=== PATIENT | female | born 1930 | race Caucasian/White ===

== ENCOUNTER 2018-10-28 15:36 | Inpatient (IN) ==
--- OUTSIDE RECORDS SUMMARY | 2018-10-28 15:45 | External Medical Summary | Continuity of Care Document ---
:1930 Author Name Lilia Pastor Address Unavailable Unavailable , Care Team Providers Name Role Phone Mae Pastor, Les Unavailable [email or web address] [email or web address], UNKNOWN Unavailable Unavailable Problems Active medical history not documented Allergies and Adverse Reactions Allergy history not documented Medications Medications not documented Procedures Procedures not documented Immunizations Immunizations not documented Plan of Treatment Planned Observations Planned Goals not documented Results No Known Results Results not documented Encounters Appointment; Kayden Wall M.D. 01-Jan-2009 10:00 Encounter Diagnosis: Problem not documented
[2018-10-28 16:38] LABS: Basophils # (auto) 0.03 K/uL (0-0.2); Basophils % (auto) 0.4 %; Eosinophils # (auto) 0.34 K/uL (0-0.5); Eosinophils % (auto) 4.1 %; Hematocrit (blood only) 42.6 % (37-47); Hemoglobin 15.5 g/dL (12.0-16.0); Immature Granulocytes # (auto) 0.03 K/uL (0.00-0.02); Immature Granulocytes % (auto) 0.4 %; Lymphocytes # (auto) 2.77 K/uL (1.2-3.4); Lymphocytes % (auto) 33.5 %; Mean Corpuscular Hgb Conc 36.4 g/dL (32-36); Mean Corpuscular Volume 90.6 fL (80-100); Mean Platelet Volume 9.4 fL (7.4-10.4); Monocytes # (auto) 1.02 K/uL (0.11-0.59); Monocytes % (auto) 12.3 %; Neutrophils # (auto) 4.07 K/uL (1.4-6.5); Neutrophils % (auto) 49.3 %; Platelet Count 205 K/uL (130-400); RDW Coefficient of Variation 12.1 % (11.5-14.5); RDW Standard Deviation 40.3 fL (36.4-46.3); White Blood Count 8.26 K/uL (4.8-10.8)
--- NOTE | 2018-10-28 16:46 | XRay Report ---
XR chest 2V routine CLINICAL HISTORY: Chest Pain dyspnea COMPARISON STUDY: 04/02/2018 FINDINGS: Mild cardiomegaly. Minimal interstitial prominence considered chronic. Mild emphysematous c hange. No focal infiltrate. IMPRESSION: Chronic and mild emphysematous change. No acute process. The above report was generated using voice recognition software. It may contain grammatical, syntax or spelling errors. Electronically signed by: Eleuterio Pal M.D. 10/28/2018 4:45 PM
[2018-10-28 16:52] LABS: Partial Thromboplastin Ratio 0.9; Partial Thromboplastin Time 24.8 Seconds (21.0-31.0); Prothrombin Time 10.5 Seconds (9.0-12.0)
[2018-10-28 16:57] LABS: Alanine Aminotransferase 20 U/L (12-78); Albumin Level 3.6 gm/dl (3.4-5.0); BUN Creatinine Ratio 21.6 (10-20); Blood Urea Nitrogen 17 mg/dl (7-18); Calcium 9.1 mg/dl (8.5-10.1); Carbon Dioxide 25 mmol/L (21-32); Chloride 103 mmol/L (98-107); Creatinine Clr Calc Pharmacy 50.1 ml/min; Est GFR (African American) 75.7; Est GFR (Non-African American) 65.3; Glucose 99 mg/dl (70-99); Lipase 106 U/L (73-393)
[2018-10-28 17:01] LABS: Alkaline Phosphatase 70 U/L (45-117); Bilirubin,Total 0.4 mg/dl (0.2-1); Troponin I 0.024 ng/ml (0-0.045)
[2018-10-28 17:05] LABS: Potassium 3.9 mmol/L (3.5-5.1); Sodium 139 mmol/L (136-145)
[2018-10-28] MEDS ORDERED: ALBUT/IPRATROP 3MG/0.5MG NEB 3 ML VIAL NEB STA (17:07)
[2018-10-28 17:11] LABS: Aspartate Aminotransferase 14 U/L (15-37); Bilirubin Direct < 0.1 mg/dl (0-0.2); Magnesium 2.3 mg/dl (1.8-2.4)
[2018-10-28] MEDS ORDERED: HEPARIN SODIUM/DEXTROSE 25,000 UNITS/500 ML BAG IV SCH (17:30)
[2018-10-28] MEDS ORDERED: HEPARIN SOD (PORCINE) 1000 UNIT/ML 10 ML VIAL ONE (18:00)
--- NOTE | 2018-10-28 18:41 | History & Physical Report ---
Date of Service October 28, 2018 Assessment & Plan (1) Atrial flutter: This is an 88-year-old female who has a significant PMH of HTN, prediabetes, glaucoma, vitamin D deficiency, emphysema, history of cervical spine fusion x2 who presents to [facility] ED at the referral of her PCP. Patient was seen in outpatient setting by PCP. Complain of bilateral lower extremity weakness, shortness of breath, lightheadedness, heart racing, left- sided chest heaviness. An EKG was performed which revealed patient was in atrial flutter with AV block, questionable anterolateral infarct which was changed from week prior. She received ASA 81 mg x 4, placed on oxygen via NC and was sent to ED. In ED pt in rate controlled atrial flutter. CBC and CMP relatively unremarkable. Troponin detectable but WNL. CXR no acute abnormality with Chronic and mild emphysematous change Started on IV heparin per cardiology admit to telemetry cardiology consulted, appreciate their input etiology of aflutter unknown - recent tx for lower resp tract infection as outpt with prednisone 40mg x 5 day, doxycyline (still 3 days to complete course) and ventolin ? if underlying ischemic heart disease, check tsh Continue IV Heparin trend troponin x 2 repeat ecg in a.m. obtain resting echocardiogram (last echo 06/2017 mild concentric left ventricular hypertrophy, EF 50 to 54%, grade 1 diastolic dysfunction, mild aortic valve sclerosis, moderate 3+ mitral regurgitation, trace aortic insufficiency) NPO after midnight PRN Lopressor for HR > 120 obtain TSH replete K for > 4.0, mag > 2.0 (2) HTN (hypertension): blood pressure elevated in ED continue coreg monitor and treat accordingly (3) Hyperlipidemia: diet controlled last lipid panel 01/24 total chol 208, LDL 117 previously has been on numerous statins in past, intolerant per prior cardiology notes obtain fasting lipid panel in a.m. (4) Pre-diabetes: Last A1C 6.4 04/27 obtain A1C in a.m. monitor fasting glucose (5) Emphysema of lung: no acute exacerbation complete doxycycline course (additional 3 days) xopenex prn for sob/wheezing (6) Glaucoma: Continue eyedrops (7) Constipation: report per pt requesting stool softener/lax Senna S ordered, monitor abd soft, NT (8) DVT prophylaxis: IV heparin SCD/TEDS Disposition: to be determined Follow up: PCP Dr. Rojelio Richmond upon discharge Patient was seen and examined in collaboration with Dr. Street, please see addendum History of Present Illness Chief Complaint: Referred to ED by PCP Primary Care Provider: Gabriela Richmond MD This is an 88-year-old female who has a significant PMH of HTN, prediabetes, g laucoma, vitamin D deficiency, emphysema, history of cervical spine fusion x2 who presents to [facility] ED at the referral of her PCP. Patient was seen in outpatient setting by Dr.Frank Richmond for follow-up from a week prior. She continued to complain of bilateral lower extremity weakness, shortness of breath, lightheadedness, heart racing, left-sided chest heaviness. An EKG was performed which revealed patient was in atrial flutter with AV block, questionable anterolateral infarct which was changed from week prior. She received ASA 81 mg x 4, placed on oxygen via NC and was sent to ED. Also of note patient seen by PCP on 10/20 secondary to shortness of breath, cough. Was placed on doxycycline, prednisone, inhaler. Lab work was performed which revealed elevated proBNP and because of this was placed on Lasix 20 mg for 3 days. Upon my evaluation patient elicits for approximately 1 month she has been having shortness of breath with exertion, heart racing, left-sided chest pressure that is nonradiating, feeling weak at the knees. Symptoms would come and go, but over the past week has been coming more constant. She has not fallen or lost consciousness. Significant decrease in exercise tolerance, little activity makes patient very fatigue, weak and sob. "I walked into [employer] [facility] to get [facility] today and just the walk in there had me weak at the knees." Had episode of BPPV at end of September but this has since resolved. Her cough is much improved. She denies any fever, chills, sweats, shortness of breath, orthopnea, PND, edema, wheezing, abdominal pain, dysuria, hematuria, increased urgency or frequency with urination. Her appetite has been good. She did have nausea and episode of emesis x2 yesterday secondary to taking medication on empty stomach. Allergies Allergy/AdvReac Type Severity Reaction Status Date / Time codeine Allergy Intermediate GI SYMPTOMS Unverified 08/22/19 16:19 Iodinated Contrast- Oral and Allergy Intermediate GI SYMPTOMS Unverified 10/28/18 16:19 IV Dye acetaminophen Allergy Mild AGITATION Unverified 10/28/18 16:19 Home Medications Home Medications Medication Instructions Recorded Confirmed Type Saccharomyces boulardii 250 mg PO BID 10/28/18 10/28/18 History albuterol sulfate [Ventolin HFA] 2 puff INHALATION Q6H PRN 10/28/18 10/28/18 History aspirin [Aspir-81] 81 mg PO DAILY 10/28/18 10/28/18 History carvedilol 6.25 mg PO BID 10/28/18 10/28/18 History cholecalciferol (vitamin D3) 2,000 unit PO QAM 10/28/18 10/28/18 History [Vitamin D3] doxycycline hyclate 100 mg PO BID 10/28/18 10/28/18 History ipratropium-albuterol [Combivent 1 puff INHALATION QID 10/28/18 10/28/18 History Respimat] prednisolone acetate 1 drp OPL HS 10/28/18 10/28/18 History prednisolone acetate 1 drp OPR QID 10/28/18 10/28/18 History ranitidine HCl 150 mg PO BID 10/28/18 10/28/18 History Past Med/Surg History Medical History Hyperlipidemia Pre-diabetes (Chronic) Emphysema of lung (Chronic) Glaucoma (Chronic) HTN (hypertension) (Chronic) Lumbar degenerative disc disease (Chronic) HTN (hypertension) Heart murmur Surgical History History of keratoplasty (Chronic) History of hysterectomy (Resolved) History of partial colectomy (Resolved) "diverticulitis" History of section (Resolved) "x4" History of cholecystectomy (Resolved) 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" H/O neck surgery (Resolved) "cervical laminectomy Dr Suleiman Bean 2010" and revision in 2018 Family History Mother Diabetes Stroke Sister Diabetes Other Family history non-contributory Social History Preferred Language: Welsh Communication Ability: Effective Bander Required: No Beliefs That Will Affect Care: Confucianism marital status: Current Living Situation: Alone current occupational status: retired Other Information That Helps Us Care for You: No Feels Safe at Home: Yes Safety Concerns: Feels Safe At This Time Smoking Status: Never smoker Do You Dip or Chew Tobacco: No ; Second Hand Exposure: No ; Hx Alcohol Use: No Hx Substance Use: No Review of Systems Review of Systems: All systems reviewed & are unremarkable except as noted in HPI & below Physical Exam Physical Exam: Constitutional: WD/WN, vitals as above, elderly, F, NAD, sitting up in bed, pleasant, conversing easily Head: Normocephalic, Atraumatic Eyes: L lower eyelid inverted, conjunctivae normal, anicteric sclerae ENMT: external ear and nose normal, oropharynx normal Neck: trachea midline, no thyromegaly normal visual inspection Respiratory: normal respiratory effort, lungs clear to auscultation, no wheeze, rales, rhonchi. Normal insp/exp effort, no accessory muscle use Cardiovascular: IRR/IRR, II/ KOKI best at apex, no edema Vessels: no JVD or carotid bruit Chest: normal inspection of chest Abdomen: normal bowel sounds, soft, nontender, no hepatosplenomegaly Musculoskeletal: no cyanosis or clubbing, extremities motor strength 5/5 Skin: no rashes, warm and dry normal turgor Neurologic: no face palsy, no dysarthria CN's II-XI intact bilaterally and moves all extremities Psychiatric: A+Ox3, euthymic affect Lymphatic: no cervical or axillary lymphadenopathy : deferred Results & Data Vital Signs (Past 12 Hours) Vital Signs Temp Pulse Pulse Resp BP Pulse Ox 10/28/18 17:34 74 18 96 10/28/18 15:50 93 10/28/18 15:38 36.6 C 94 H 26 H 161/93 H 93 Laboratory Results Short CBC 10/28/18 Range/Units 15:12 WBC 8.26 (4.8-10.8) K/uL Hgb 15.5 (12.0-16.0) g/dL Hct 42.6 (37-47) % Plt Count 205 (130-400) K/uL BMP 10/28/18 15:12 Sodium 139 Potassium 3.9 Chloride 103 Carbon Dioxide 25 BUN 17 Creatinine 0.81 Glucose 99 Calcium 9.1 Cardiac Enzymes 10/28/18 Range/Units 15:12 Troponin I 0.024 (0-0.045) ng/ml Liver Function 10/28/18 Range/Units 15:12 Total Bilirubin 0.4 (0.2-1) mg/dl Direct Bilirubin < 0.1 (0-0.2) mg/dl AST 14 L (15-37) U/L ALT 20 (12-78) U/L Alkaline Phosphatase 70 (45-117) U/L Albumin 3.6 (3.4-5.0) gm/dl Diagnostic Findings CXR: IMPRESSION: Chronic and mild emphysematous change. No acute process. Medications Administered Heparin Sodium/Dextrose (Heparin Sodium/Dextrose) 25,000 units in 500 mls @ 0.02 mls/hr IV .Q24H DAVID; Protocol Stop: 11/27/18 17:29 Last Admin: 10/28/18 18:06 Dose: 1,150 units/hr, 23 mls/hr Documented by: [id number] Cosigned by: [id number] Discontinued Medications Albuterol (Duoneb) 3 ml NEB NOW STA Stop: 10/28/18 17:08 Last Admin: 10/28/18 17:33 Dose: 3 ml Documented by: [id number] Heparin Sodium/Dextrose () 1 ea IV NOW STA; Protocol Stop: 10/28/18 17:20 Last Admin: 10/28/18 18:13 Dose: Not Given Documented by: [id number] ECG Rate (beats per minute): 74 Rhythm: atrial flutter Findings: + ST depression Additional Comments: aflutter with variable AV Block with PVC, inferior infarct, age-indeterminate, anterior infarct (cited on or before April 02, 2018) ST now depressed inferiorly Code Status & VTE Plan VTE Prophylaxis Plan VTE Prophylaxis will be ordered: Yes Supervising Physician Co-Signing Physician Notes Patient is an 88-year-old female with multiple problems presents with history of bilateral lower extremity weakness, shortness of breath, dizziness, palpitations and left-sided chest heaviness. Patient was noted to have atrial flutter with AV block on EKG which is rate controlled and questionable anterolateral ST changes. Patient was recently started on doxycycline and prednisone course for possible upper respiratory infection by her PCP. She was also placed on Lasix for an elevated BNP noted on outpatient work-up. Please review HPI for complete details of presentation. On exam patient is moderately built and nourished, no apparent distress, normocephalic atraumatic, anisocoria, lungs are clear to auscultation, irregularly irregular rhythm,+ systolic murmur, no pedal edema, grossly no focal neurological deficits. Patient is admitted for management of atrial flutter and EKG changes. R/O ACS. Initial troponin negative. Patient is started on IV heparin. Cardiology is consulted. We will continue home carvedilol. We will give Lopressor PRN. Will obtain echo. Trend troponins. C heck TSH. Monitor electrolytes. Further management based on audiology input. We will continue prednisone, doxycycline course. I personally reviewed the record. Patient is interviewed and examined at bedside. Patient's care is coordinated with Tracie Vu PA-C. Please refer to the documentation above for details of patient's presentation and for discussion of other issues. (1) Atrial flutter Atrial flutter type: unspecified Qualified Code(s): I48.92 - Unspecified atrial flutter
[2018-10-28] MEDS ORDERED: METOPROLOL TARTRATE 1 MG/ML VIAL IV PRN (19:36)
[2018-10-28] MEDS ORDERED: POLYETHYLENE (MIRALAX) 17 GM PACK PO PRN (19:36)
[2018-10-28] MEDS ORDERED: MAGNESIUM HYDROXIDE SUSP 30 ML UDC PO PRN (19:36)
[2018-10-28] MEDS ORDERED: ONDANSETRON INJ 2 MG/ML 2 ML VIAL IV PRN (19:36)
[2018-10-28] MEDS ORDERED: ALUMINUM/MAGNESIUM SUSP 30 ML UDC PO PRN (19:36)
[2018-10-28] MEDS ORDERED: LEVALBUTEROL HCL 0.63 MG/3 ML NEB NEB PRN (19:36)
[2018-10-28] MEDS ORDERED: ACETAMINOPHEN 325 MG TAB PO PRN (19:36)
--- NOTE | 2018-10-28 19:43 | Emergency Department Note ---
Entered by Chinyere Park acting as a scribe for Gary Dennis History of Present Illness General Chief complaint: Chest Pain Time Seen by Provider: 10/28/18 16:03 Source: patient History of Present Illness Onset (ago): week(s) 4 Location: head (general ) Pain Consistency: + other (worsening) Quality: + other (weakness) Exacerbated By: + movement (walking and exerting self) Associated symptoms: + shortness of breath (worsening ) and + other (positive palpitations; negative blood in stools; negative blood in urine); no chest pain Treatments prior to arrival: aspirin The patient is a 88 year old female who presents to the Emergency Room with complaints of worsening weakness that began about 4 weeks prior to arrival. The patient states that when she walks and exerts herself her symptoms are exacerbated and she feels as though she may fall. She denies any recent falls. The patient states that during these episodes of weakness she has palpitations. She reports that she has had a murmur since she was young. The patient reports that she went to her PCP yesterday where her PCP told her her "lungs are not good" and put the patient on doxycycline. She reports that she has had worsening shortness of breath. The patient denies chest pain, blood in stools, and blood in her urine. The patient denies a history of smoking. She denies being on blood thinners. The patient's PCP states that the patient had an episode of atrial flutter while in the office today and referred the patient to the ED. The patient received aspirin by EMS. Home Medications Home Medications Medication Instructions Recorded Confirmed Type Saccharomyces boulardii 250 mg PO BID 10/28/18 10/28/18 History albuterol sulfate [Ventolin HFA] 2 puff INHALATION Q6H PRN 10/28/18 10/28/18 History aspirin [Aspir-81] 81 mg PO DAILY 10/28/18 10/28/18 History carvedilol 6.25 mg PO BID 10/28/18 10/28/18 History cholecalciferol (vitamin D3) 2,000 unit PO QAM 10/28/18 10/28/18 History [Vitamin D3] doxycycline hyclate 100 mg PO BID 10/28/18 10/28/18 History ipratropium-albuterol [Combivent 1 puff INHALATION QID 10/28/18 10/28/18 History Respimat] prednisolone acetate 1 drp OPL HS 10/28/18 10/28/18 History prednisolone acetate 1 drp OPR QID 10/28/18 10/28/18 History ranitidine HCl 150 mg PO BID 10/28/18 10/28/18 History Allergies Allergy/AdvReac Type Severity Reaction Status Date / Time codeine Allergy Intermediate GI SYMPTOMS Unverified 10/28/18 16:19 Iodinated Contrast- Oral and Allergy Intermediate GI SYMPTOMS Unverified 10/28/18 16:19 IV Dye acetaminophen Allergy Mild AGITATION Unverified 10/28/18 16:19 Past Med/Surg History Medical History Hyperlipidemia Pre-diabetes (Chronic) Emphysema of lung (Chronic) Glaucoma (Chronic) HTN (hypertension) (Chronic) Lumbar degenerative disc disease (Chronic) HTN (hypertension) Heart murmur Surgical History History of keratoplasty (Chronic) History of hysterectomy (Resolved) History of partial colectomy (Resolved) "diverticulitis" History of section (Resolved) "x4" History of cholecystectomy (Resolved) 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" H/O neck surgery (Resolved) "cervical laminectomy Dr Suleiman Bean 2010" and revision in 2018 Family History Mother Diabetes Stroke Sister Diabetes Other Family history non-contributory Social History Preferred Language: Mauritanian Communication Ability: Effective 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 and A total of 10 systems reviewed and were otherwise negative Physical Exam Vital Signs Vital Signs - 24 hr 10/28/18 15:38 10/28/18 15:45 10/28/18 15:50 Temperature 36.6 C Temperature Source Oral Sepsis Recent Fever Within 48 Hours No Sepsis New/Unexplained Change in Mental Status No Sepsis Action Taken by Nursing No Action Required Pulse Rate 94 H 78 Pulse Rate [Right Radial] Pulse Rate from SpO2 Sensor 80 Respiratory Rate 26 H 10 L Respiratory Effort / Characteristics Blood Pressure 161/93 H 161/93 H Blood Pressure Mean 115 115 Pulse Oximetry 93 97 93 Oxygen Delivery Method Room Air Room Air 10/28/18 17:34 Temperature Temperature Source Sepsis Recent Fever Within 48 Hours Sepsis New/Unexplained Change in Mental Status Sepsis Action Taken by Nursing Pulse Rate Pulse Rate [Right Radial] 74 Pulse Rate from SpO2 Sensor Respiratory Rate 18 Respiratory Effort / Characteristics Non-Labored Spontaneous Blood Pressure Blood Pressure Mean Pulse Oximetry 96 Oxygen Delivery Method Room Air GENERAL: She is oriented to person, place, and time. She appears well-developed and well-nourished. She does not appear distressed. HENT: Exam performed. Head: Normocephalic and atraumatic. Right Ear: External ear normal. No mastoid tenderness. Left Ear: External ear normal. No mastoid tenderness. Mouth/Throat: The oropharynx is clear and moist. No trismus in the jaw. No dental abscesses or uvula swelling. No oropharyngeal exudate or tonsillar abscesses. EYES: Conjunctivae and EOM are normal. Pupils are equal, round, and reactive to light. Right eye exhibits no discharge. Left eye exhibits no discharge. No scleral icterus. NECK: Normal range of motion. Neck supple. No JVD present. No spinous process tenderness present. No carotid bruit present. No rigidity. No tracheal deviation and normal range of motion present. No Brudzinski's sign and no Kernig's sign noted. CV: Systolic murmur. Normal rate, irregular rhythm, normal heart sounds and intact distal pulses. There is no peripheral edema. Palpable radial pulses bue. PULM/CHEST: Expiratory wheezes and inspiratory rales at the bases. Effort normal. No respiratory distress. No stridor. Chest Wall: She exhibits no tenderness. ABD: The abdomen is soft. Bowel sounds are normal. She has no distension. No mass is present. There is no tenderness. There is no rebound, no guarding, no Ruiz's sign and no tenderness at McBurney's point. Rovsig negative MUSC/SKEL: Normal range of motion. There is no peripheral edema, tenderness or deformity. LYMPH: No cervical adenopathy. NEURO: She is alert and oriented to person, place, and time. She has normal strength. No cranial nerve deficit or sensory deficit. Coordination and gait normal. GCS eye subscore is 4. GCS verbal subscore is 5. GCS motor subscore is 6. cerbellar tests wnl. SKIN: Skin is warm and dry. She is not diaphoretic. PSYCH: She has a normal mood and affect. Her behavior is normal. Judgment and thought content normal. Course 1604: Past medical records reviewed. The patient was evaluated in room C3. A complete history and physical exam was performed. 1715: Vital signs stable. Labs and imaging within normal limits. Patient has been in atrial flutter on the monitoring coordinator with a normal ventricular rate since being in the emergency department. I discussed the case with Dr. Ty Valero who reviewed the patient's case and states that he performed an echo on the patient in June 2017 which showed mild mitral regurgitation. He recommends that the patient be further evaluated in the hospital given her new onset aflutter and be started on Heparin. 1725: I discussed the case with Nika Ngo PA-C who accepts the patient for further evaluation under Dr. Vaibhav garcia. Consultations Consultation #1: I discussed the case with Dr. Mariza Valero who reviewed the patient's case and states that he performed an echo on the patient in June 2017 which showed mild mitral regurgitation. He recommends that the patient be further evaluated in the hospital given her new onset aflutter and be started on Heparin. Time: 17:15 Consultation #2: I discussed the case with Nika Ngo PA-C who accepts the patient for further evaluation under Dr. Vaibhav garcia. Time: 17:25 Administered Medications Carvedilol (Coreg) 6.25 mg PO BID [facility] Stop: 11/27/18 20:59 Last Admin: 10/28/18 20:48 Dose: 6.25 mg Documented by: [id number] Doxycycline Hyclate (Vibramycin) 100 mg PO BID [facility] Stop: 10/31/18 21:01 Last Admin: 10/28/18 20:48 Dose: 100 mg Documented by: [id number] Heparin Sodium/Dextrose (Heparin Sodium/Dextrose) 25,000 units in 500 mls @ 20 mls/hr IV .Q24H DAVID; Protocol Stop: 11/27/18 19:35 Last Titration: 10/29/18 01:19 Dose: 1,000 units/hr, 20 mls/hr Documented by: [id number] Cosigned by: [id number] Titration: 10/29/18 00:43 Dose: 0 units/hr, 0 mls/hr Documented by: [id number] Cosigned by: [id number] Admin: 10/28/18 22:03 Dose: 1,150 units/hr, 23 mls/hr Documented by: [id number] Cosigned by: [id number] Prednisolone Acetate (Pred Forte 1%) 1 drops OPL HS DAVID Stop: 11/27/18 20:59 Last Admin: 10/28/18 20:48 Dose: 1 drops Documented by: [id number] Prednisolone Acetate (Pred Forte 1%) 1 drops OPR QID DAVID Stop: 11/27/18 20:59 Last Admin: 10/28/18 20:48 Dose: Not Given Documented by: [id number] Ranitidine HCl (Zantac) 150 mg PO BID [facility]ID Stop: 11/27/18 20:59 Last Admin: 10/28/18 20:47 Dose: 150 mg Documented by: [id number] Saccharomyces Boulardii (Florastor) 250 mg PO BID DAVID Stop: 11/27/18 20:59 Last Admin: 10/28/18 20:47 Dose: 250 mg Documented by: [id number] Senna/Docusate Sodium (Senokot S) 1 tab PO QAM DAVID Stop: 11/27/18 19:35 Last Admin: 10/28/18 20:46 Dose: 1 tab Documented by: [id number] Discontinued Medications Albuterol (Duoneb) 3 ml NEB NOW STA Stop: 10/28/18 17:08 Last Admin: 10/28/18 17:33 Dose: 3 ml Documented by: [id number] Heparin Sodium (Porcine) (Heparin Iv Bolus) Confirm Administered Dose 10,000 units .ROUTE .STK-MED ONE Stop: 10/28/18 18:01 Last Admin: 10/28/18 18:06 Dose: 5,000 units Documented by: [id number] Cosigned by: [id number] Heparin Sodium/Dextrose () 1 ea IV NOW STA; Protocol Stop: 10/28/18 17:20 Last Admin: 10/28/18 18:13 Dose: Not Given Documented by: [id number] Heparin Sodium/Dextrose (Heparin Sodium/Dextrose) 25,000 units in 500 mls @ 23 mls/hr IV .[id number] DAVID; Protocol Stop: 11/27/18 17:29 Last Titration: 10/28/18 22:04 Dose: 0 units/hr, 0 mls/hr Documented by: [id number] Cosigned by: [id number] Admin: 10/28/18 18:06 Dose: 1,150 units/hr, 23 mls/hr Documented by: [id number] Cosigned by: [id number] Potassium Chloride (Klor-Con [id number]) 20 meq PO 2000 ONE Stop: 10/28/18 20:01 Last Admin: 10/28/18 20:47 Dose: 20 meq Documented by: [id number] Medical Decision Making Medical Records Attestation: I reviewed the patient's medical records. Home Medications Current Medication List: was personally reviewed by me Laboratory Data Attestation: I reviewed the patient's lab results. Result diagrams: 10/28/18 15:12 10/28/18 15:12 Lab Results 10/28/18 10/28/18 10/28/18 Range/Units 15:12 15:12 15:12 WBC 8.26 (4.8-10.8) K/uL RBC 4.70 (4.2-5.4) M/uL Hgb 15.5 (12.0-16.0) g/dL Hct 42.6 (37-47) % MCV 90.6 (80-100) fL MCH 33.0 (25-34) pg MCHC 36.4 H (32-36) g/dL RDW Std Deviation 40.3 (36.4-46.3) fL RDW Coeff of Rahul 12.1 (11.5-14.5) % Plt Count 205 (130-400) K/uL MPV 9.4 (7.4-10.4) fL Immature Gran % (Auto) 0.4 % Neut % (Auto) 49.3 % Lymph % (Auto) 33.5 % [place] % (Auto) 12.3 % Eos % (Auto) 4.1 % Baso % (Auto) 0.4 % Immature Gran # (Auto) 0.03 H (0.00-0.02) K/uL Neut # (Auto) 4.07 (1.4-6.5) K/uL Lymph # (Auto) 2.77 (1.2-3.4) K/uL [place] # (Auto) 1.02 H (0.11-0.59) K/uL Eos # (Auto) 0.34 (0-0.5) K/uL Baso # (Auto) 0.03 (0-0.2) K/uL PT 10.5 (9.0-12.0) Seconds INR 1.0 (0.9-1.1) APTT 24.8 (21.0-31.0) Seconds PTT Ratio 0.9 Sodium 139 (136-145) mmol/L Potassium 3.9 (3.5-5.1) mmol/L Chloride 103 (98-107) mmol/L Carbon Dioxide 25 (21-32) mmol/L Anion Gap 11.0 (3-11) BUN 17 (7-18) mg/dl Creatinine 0.81 (0.6-1.2) mg/dl Est Cr Clr Drug Dosing 50.1 ml/min Est GFR ( Amer) 75.7 Est GFR (Non-Af Amer) 65.3 BUN/Creatinine Ratio 21.6 H (10-20) Glucose 99 (70-99) mg/dl Calcium 9.1 (8.5-10.1) mg/dl Magnesium 2.3 (1.8-2.4) mg/dl Total Bilirubin 0.4 (0.2-1) mg/dl Direct Bilirubin < 0.1 (0-0.2) mg/dl AST 14 L (15-37) U/L ALT 20 (12-78) U/L Alkaline Phosphatase 70 (45-117) U/L Troponin I 0.024 (0-0.045) ng/ml Total Protein 7.0 (6.4-8.2) gm/dl Albumin 3.6 (3.4-5.0) gm/dl Lipase 106 (73-393) U/L Imaging Data Radiologist's Impression: Radiology results as stated below per my review and the radiologist's interpretation: XR chest 2V routine CLINICAL HISTORY: Chest Pain dyspnea COMPARISON STUDY: 04/02/2018 FINDINGS: Mild cardiomegaly. Minimal interstitial prominence considered chronic. Mild emphysematous change. No focal infiltrate. IMPRESSION: Chronic and mild emphysematous change. No acute process. The above report was generated using voice recognition software. It may contain grammatical, syntax or spelling errors. Electronically signed by: Eleuterio Pal M.D. 10/28/2018 4:45 PM ECG Data Attestation: I personally reviewed and interpreted this ECG as follows: Indication: weakness Rate (beats per minute): 74 Rhythm: atrial flutter Findings: + other (QRS and QTC within normal limits) and + PVC; no ST depression and no ST elevation Blood Pressure Blood Pressure Findings: Elevated blood pressure Blood Pressure Disposition: further management by hospitalist MARICRUZ Narrative 1604: Past medical records reviewed. The patient was evaluated in room C3. A complete history and physical exam was performed. 1715: Vital signs stable. Labs and imaging within normal limits. Patient has been in atrial flutter on the monitoring coordinator with a normal ventricular rate since being in the emergency department. I discussed the case with Dr. Dawkins Cardiology who reviewed the patient's case and states that he performed an echo on the patient in June 2017 which showed mild mitral regurgitation. He recommends that the patient be further evaluated in the hospital given her new onset aflutter and be started on Heparin. 1725: I discussed the case with Nika Ngo PA-C who accepts the patient for further evaluation under Dr. Esposito Hospitalist care. Impression & Plan Atrial flutter, Near syncope Critical Care Time Critical Care Time: Yes Total Critical Care Time: 52 I have personally spent 52 minutes of critical care time in the direct management of this patient. This includes bedside care, interpretation of diagnostic studies, and testing, discussion with consultants, patient, and family members, and other required patient management activities. This 52 minutes is in excess of all separately billable procedures. Discharge Plan Visit Data *Final* Discharge Date/Time: 10/28/18 19:08 Chief Complaint: Chest Pain ED Provider: Gary Dennis Discharge Problem: Atrial flutter, Near syncope Patient Disposition: Admitted As Inpatient Discharge Instructions Interventions: ED Discharge Assessment Last Done: 10/28/18 19:08 Discharge Problem: Atrial flutter Qualifiers: Atrial flutter type: unspecified Qualified Code(s): I48.92 - Unspecified atrial flutter The scribe's documentation has been prepared under my direction and personally reviewed by me in its entirety. I confirm that the note above accurately reflects all work, treatment, procedures, and medical decision making performed by me.
[2018-10-28] MEDS ORDERED: POTASSIUM CHLORIDE 20 MEQ TABCR PO ONE (20:00)
[2018-10-28] MEDS: DOCUSATE SODIUM/SENNA 50/8.6MG TAB PO SCH (20:46)
[2018-10-28] MEDS: SACCHAROMYCES BOULARDII 250 MG CAP PO SCH (20:47)
[2018-10-28] MEDS: prednisoLONE acetate 1% OP SUSP 5 ML BTL OPR SCH (20:48)
[2018-10-28] MEDS: DOXYCYCLINE HYCLATE 100 MG CAP PO SCH (20:48)
[2018-10-28] MEDS: CARVEDILOL 6.25 MG TAB PO SCH (20:48)
[2018-10-28] MEDS: prednisoLONE acetate 1% OP SUSP 5 ML BTL OPL SCH (20:48)
[2018-10-28] MEDS: HEPARIN SODIUM/DEXTROSE 25,000 UNITS/500 ML BAG IV SCH (22:03)
[2018-10-29 00:39] LABS: Partial Thromboplastin Ratio 3.4
[2018-10-29 00:41] LABS: Partial Thromboplastin Time 92.8 Seconds (21.0-31.0)
[2018-10-29 03:15] LABS: Basophils # (auto) 0.03 K/uL (0-0.2); Basophils % (auto) 0.4 %; Eosinophils # (auto) 0.44 K/uL (0-0.5); Hematocrit (blood only) 41.8 % (37-47); Hemoglobin 14.4 g/dL (12.0-16.0); Immature Granulocytes # (auto) 0.03 K/uL (0.00-0.02); Immature Granulocytes % (auto) 0.4 %; Lymphocytes # (auto) 2.88 K/uL (1.2-3.4); Mean Corpuscular Hemoglobin 31.8 pg (25-34); Mean Corpuscular Hgb Conc 34.4 g/dL (32-36); Mean Corpuscular Volume 92.3 fL (80-100); Mean Platelet Volume 9.7 fL (7.4-10.4); Monocytes # (auto) 0.94 K/uL (0.11-0.59); Monocytes % (auto) 12.7 %; Neutrophils # (auto) 3.07 K/uL (1.4-6.5); Neutrophils % (auto) 41.5 %; Platelet Count 193 K/uL (130-400); RDW Coefficient of Variation 12.4 % (11.5-14.5); RDW Standard Deviation 41.9 fL (36.4-46.3); Red Blood Count 4.53 M/uL (4.2-5.4); White Blood Count 7.39 K/uL (4.8-10.8)
[2018-10-29 03:27] LABS: BUN Creatinine Ratio 20.4 (10-20); Calcium 8.8 mg/dl (8.5-10.1); Creatinine Clr Calc Pharmacy 44.2 ml/min; Est GFR (African American) 67.5; Est GFR (Non-African American) 58.3; Magnesium 2.3 mg/dl (1.8-2.4); Potassium 3.9 mmol/L (3.5-5.1)
[2018-10-29 03:32] LABS: Troponin I 0.029 ng/ml (0-0.045)
[2018-10-29 07:25] LABS: Estimated Average Glucose 131 mg/dl; Hemoglobin A1C 6.2 % (4.5-5.6)
[2018-10-29 08:09] LABS: Partial Thromboplastin Ratio 2.8
[2018-10-29] MEDS: prednisoLONE acetate 1% OP SUSP 5 ML BTL OPR SCH ×4 (08:18→19:34)
[2018-10-29] MEDS: DOCUSATE SODIUM/SENNA 50/8.6MG TAB PO SCH (08:19)
[2018-10-29] MEDS: CHOLECALCIFEROL 1,000 UNITS TAB PO SCH (08:20)
[2018-10-29] MEDS: CARVEDILOL 6.25 MG TAB PO SCH (08:25)
[2018-10-29 09:01] LABS: Partial Thromboplastin Time 75.7 Seconds (21.0-31.0)
--- NOTE | 2018-10-29 11:33 | Cardiology Consultation ---
Date of Consultation October 29, 2018 Assessment & Plan (1) Atrial flutter: Patient presents with new onset symptomatic atrial flutter with a controlled ventricular response status post spontaneous conversion back to sinus rhythm with a prolonged first degree AV block, with resolution in presenting symptoms. [id number] Score is 5 points. Examination without evidence of volume overload whatsoever. Symptoms, in the setting of multiple cardiac risk factors, raise significant concern for considerable obstructive coronary artery disease. Troponins are negative but not undetectable. Options of management discussed with patient, daughter, and Dr. Fernandes. Would initially recommend attempts at medical management. Recommendations at this time include switching carvedilol to metoprolol, adding isosorbide mononitrate, and initiation of Coumadin anticoagulation (risks and benefits discussed with the patient and her daughter who was present for my entire evaluation). Supervising Physician Co-Signing Physician Notes Supervising Physician Attestation: I have personally performed a history and physical examination on the patient. I agree with the physician therapist's assistant's findings and plan as documented with the following additions. Subjective: The patient was seen and examined in room 220-1, her daughter, Enedina, accompanied her. Pt sitting in chair comfortable. Telemetry reveals conversion from atrial flutter with controlled ventricular rate to sinus rhythm with long first-degree AV block last evening 10/28/2018 at 11:39 PM. Sinus rhythm with occasional PVCs noted. Exam: Regular rhythm, no edema Data: EKG performed this morning 10/29/2018 at 6:22 AM and reviewed independently: Sinus rhythm at 76 bpm with long first-degree AV block, MN interval 318 ms. No significant repolarization of normalities. Compared to the prior tracing performed on 10/28/2018, sinus rhythm with long first-degree AV block is replaced atrial flutter. Criteria for age undetermined anterior infarction are no longer present. Criteria for age-indeterminate inferior infarction no longer present. Echocardiogram performed today and reviewed independently by the undersigned: Mild left atrial dilatation is present. Moderate concentric left ventricular hypertrophy is present, the LVEF is normal at 60-65% With no regional wall motion abnormalities. The right ventricle appears small and perhaps underfilled. Assessment: 1. Newly diagnosed atrial flutter, status post spontaneous conversion to sinus rhythm 2. Baseline EKG reveals sinus rhythm with long first-degree AV block, MN interval 220 ms 3. 1 month of symptoms of exertional shortness of breath, symptoms suggestive of angina, or perhaps paroxysmal atrial arrhythmias Plan: The patient's symptoms started at least a month ago. An outpatient trial of corticosteroids for presumed bronchitis exacerbation did not palliate her symptoms. 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 It could be that her symptoms are due to paroxysmal atrial arrhythmias, however it does sound suggestive of angina as well. Troponin levels have been negative x3, but not undetectable, her EKG reveals no evidence of acute ischemia. I am hesitant to start the patient on antiarrhythmic therapy given her degree of left ventricular hypertrophy, and long first-degree AV block, she is not an ideal candidate for sotalol or amiodarone. At present, I recommend transitioning her from carvedilol to metoprolol which may be a better medication in terms of heart rate control and angina suppression. We will also add isosorbide mononitrate for blood pressure control and its antianginal effects. Proceed with initiation of Coumadin for stroke prophylaxis. She can follow with the anticoagulation clinic at [facility]. 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 She is looking forward to this field services manager. As long as she is feeling well tomorrow, I think it would be reasonable to consider discharge with plans to continue Coumadin as an outpatient, without bridge therapy. DVT prophylaxis: She is on an unfractioned heparin, will start Coumadin. Kayden Fernandes DO History of Present Illness Reason for Consultation: Atrial flutter Requesting Physician: Tracie Vu PA-C Attending Physician: Morenita Jacinto MD History of Present Illness The patient notes being in her usual state of health and to the other side of September when she began to experience exertional leg weakness with associated left- sided chest heaviness, shortness of breath, and tachypalpitations. The patient notes, at the request of her daughter (Enedina Meng), going to see her primary care physician on October 20, 2018 due to "weakness in the legs." Issues at that time were felt to reflect a COPD exacerbation for which the patient was prescribed prednisone, doxycycline, and Combivent. EKG at that visit revealed sinus rhythm with a prolonged first-degree AV block with occasional premature ventricular complexes and a possible old anterior infarct. Due to an elevated BNP she was prescribed furosemide 20 mg/day x 3 days. She returned to see her PCP on October with continued complaints of exertional chest tightness, palpitations, diaphoresis, and weakness in the legs. EKG on October 28, 2018 at her PCPs office revealed typical atrial flutter with variable block, premature ventricular or aberrantly conducted complexes, low voltage QRS, possible inferior infarct, possible old anterior lateral infarct. Due to symptoms and EKG findings the patient was referred to [facility]. She was seen in the ER by Dr. Gary Dennis. EKG once again revealed atrial flutter with no acute ST-T wave changes. Chest x-ray revealed chronic and mild emphysematous changes but no acute cardiopulmonary process. Laboratory work revealed a normal white blood cell count, 7.39. H&H were normal at 14.4 and 41.8. Platelet count was normal 190 3K. Chemistry panel revealed a sodium 139. Potassium is 3.9. BUN was 18. Creatinine was 0.89. Random glucose was 108. Calcium was normal at 8.8. Magnesium was normal at 2.3. TSH was normal at 2.630. Troponin readings are as follows: 0.024, 0.038, and 0.029. The patient was admitted to telemetry. Review of her continuous site monitor reveals spontaneous conversion from atrial flutter back to sinus with a prolonged first-degree AV block between 11 and 12 last night. The patient has remained in sinus rhythm with a first-degree AV block since conversion. EKG this morning reveals sinus rhythm with a prolonged first-degree AV block. QTC is 461 ms. Resting echocardiography performed this morning reveals a mildly dilated left atrium with moderate concentric left ventricular hypertrophy. Left ventricular systolic function was normal without wall motion abnormality. Ejection fraction 60 to 65%. The right ventricle was noted to be small and perhaps underfilled. Mild mitral regurgitation was observed. The patient has been up to the restroom this morning without recurrence of symptoms. The patient denies a personal history of coronary artery disease however she notes multiple family members with significant obstructive coronary artery disease. She notes having a long-standing history of heart murmur with chart review revealing varying degrees of mitral insufficiency. Stress testing was last completed in April 2016 was negative for exercise-induced myocardial ischemia at 4.6 METS. Allergies Allergy/AdvReac Type Severity Reaction Status Date / Time codeine Allergy Intermediate GI SYMPTOMS Unverified 10/28/18 16:19 Iodinated Contrast- Oral and Allergy Intermediate GI SYMPTOMS Unverified 10/28/18 16:19 IV Dye acetaminophen Allergy Mild AGITATION Unverified 10/28/18 16:19 Home Medications Home Medications Medication Instructions Recorded Confirmed Type Saccharomyces boulardii 250 mg PO BID 10/28/18 10/28/18 History albuterol sulfate [Ventolin HFA] 2 puff INHALATION Q6H PRN 10/28/18 10/28/18 History aspirin [Aspir-81] 81 mg PO DAILY 10/28/18 10/28/18 History carvedilol 6.25 mg PO BID 10/28/18 10/28/18 History cholecalciferol (vitamin D3) 2,000 unit PO QAM 10/28/18 10/28/18 History [Vitamin D3] doxycycline hyclate 100 mg PO BID 10/28/18 10/28/18 History ipratropium-albuterol [Combivent 1 puff INHALATION QID 10/28/18 10/28/18 History Respimat] prednisolone acetate 1 drp OPL HS 10/28/18 10/28/18 History prednisolone acetate 1 drp OPR QID 10/28/18 10/28/18 History ranitidine HCl 150 mg PO BID 10/28/18 10/28/18 History Patient History Medical History Hyperlipidemia Pre-diabetes (Chronic) Emphysema of lung (Chronic) Glaucoma (Chronic) HTN (hypertension) (Chronic) Lumbar degenerative disc disease (Chronic) HTN (hypertension) Heart murmur Surgical History History of keratoplasty (Chronic) History of hysterectomy (Resolved) History of partial colectomy (Resolved) "diverticulitis" History of section (Resolved) "x4" History of cholecystectomy (Resolved) 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" H/O neck surgery (Resolved) "cervical laminectomy Dr Suleiman Bean 2010" and revision in 2018 Family History Mother Diabetes Stroke Sister Diabetes Other Family history non-contributory Social History Preferred Language: Cymro Communication Ability: Effective 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 No history of TIA or CVA. No history of kidney or liver problems. Recent issues with vertigo requiring physical therapy evaluation and manipulation x2. Remote partial colectomy. History of rheumatic fever as a child. History of hematuria. Status post hysterectomy. Status post spine surgery. Status post cholecystectomy. Status post cervical spine fusion. Physical Exam Physical Exam: General: A&Ox3. NAD. Younger than physiologic age. HEENT: Normocephalic. Atrumatic. Neck: Neck veins are flat. No hepatojugular reflux Chest: normal shape and normal respiratory effort Lungs: Clear to auscultation and percussion Cardiac Exam: Regular II/ SM Abdomen: +BS. Soft, non-tender, no abnormal masses and no hepatosplenomegaly Extremities: No clubbing, cyanosis, or edema. Neuro: grossly normal exam Psych: appropriate affect and insight. Results & Data Vital Signs (Past 12 Hours) Vital Signs Temp Pulse Pulse Resp BP Pulse Ox 10/29/18 11:30 36.8 C 75 19 118/79 95 10/29/18 08:41 36.5 C 76 19 150/85 H 96 10/29/18 07:57 75 10/29/18 03:16 36.6 C 75 16 124/83 96 10/28/18 23:33 36.6 C 74 16 119/68 93 Laboratory Results - last 24 hr 10/28/18 10/28/18 10/28/18 15:12 15:12 15:12 WBC 8.26 RBC 4.70 Hgb 15.5 Hct 42.6 MCV 90.6 MCH 33.0 MCHC 36.4 H RDW Std Deviation 40.3 RDW Coeff of Rahul 12.1 Plt Count 205 MPV 9.4 Immature Gran % (Auto) 0.4 Neut % (Auto) 49.3 Lymph % (Auto) 33.5 Cassia % (Auto) 12.3 Eos % (Auto) 4.1 Baso % (Auto) 0.4 Immature Gran # (Auto) 0.03 H Neut # (Auto) 4.07 Lymph # (Auto) 2.77 Cassia # (Auto) 1.02 H Eos # (Auto) 0.34 Baso # (Auto) 0.03 PT 10.5 INR 1.0 APTT 24.8 PTT Ratio 0.9 Sodium 139 Potassium 3.9 Chloride 103 Carbon Dioxide 25 Anion Gap 11.0 BUN 17 Creatinine 0.81 Est Cr Clr Drug Dosing 50.1 Est GFR ( Amer) 75.7 Est GFR (Non-Af Amer) 65.3 BUN/Creatinine Ratio 21.6 H Glucose 99 Estimat Average Glucose Hemoglobin A1c Calcium 9.1 Magnesium 2.3 Total Bilirubin 0.4 Direct Bilirubin < 0.1 AST 14 L ALT 20 Alkaline Phosphatase 70 Troponin I 0.024 Total Protein 7.0 Albumin 3.6 Triglycerides Cholesterol LDL Cholesterol, Calc VLDL Cholesterol, Calc HDL Cholesterol Cholesterol/HDL Ratio Lipase 106 TSH 10/28/18 10/28/18 10/29/18 19:43 21:00 00:10 WBC RBC Hgb Hct MCV MCH MCHC RDW Std Deviation RDW Coeff of Rahul Plt Count MPV Immature Gran % (Auto) Neut % (Auto) Lymph % (Auto) Cassia % (Auto) Eos % (Auto) Baso % (Auto) Immature Gran # (Auto) Neut # (Auto) Lymph # (Auto) Cassia # (Auto) Eos # (Auto) Baso # (Auto) PT INR APTT 92.8 H* PTT Ratio 3.4 Sodium Potassium Chloride Carbon Dioxide Anion Gap BUN Creatinine Est Cr Clr Drug Dosing Est GFR ( Amer) Est GFR (Non-Af Amer) BUN/Creatinine Ratio Glucose Estimat Average Glucose Hemoglobin A1c Calcium Magnesium Total Bilirubin Direct Bilirubin AST ALT Alkaline Phosphatase Troponin I 0.038 Total Protein Albumin Triglycerides Cholesterol LDL Cholesterol, Calc VLDL Cholesterol, Calc HDL Cholesterol Cholesterol/HDL Ratio Lipase TSH 2.630 10/29/18 10/29/18 10/29/18 02:51 02:51 02:51 WBC 7.39 RBC 4.53 Hgb 14.4 Hct 41.8 MCV 92.3 MCH 31.8 MCHC 34.4 RDW Std Deviation 41.9 RDW Coeff of Rahul 12.4 Plt Count 193 MPV 9.7 Immature Gran % (Auto) 0.4 Neut % (Auto) 41.5 Lymph % (Auto) 39.0 Cassia % (Auto) 12.7 Eos % (Auto) 6.0 Baso % (Auto) 0.4 Immature Gran # (Auto) 0.03 H Neut # (Auto) 3.07 Lymph # (Auto) 2.88 Cassia # (Auto) 0.94 H Eos # (Auto) 0.44 Baso # (Auto) 0.03 PT INR APTT PTT Ratio Sodium 139 Potassium 3.9 Chloride 105 Carbon Dioxide 30 Anion Gap 4.0 BUN 18 Creatinine 0.89 Est Cr Clr Drug Dosing 44.2 Est GFR ( Amer) 67.5 Est GFR (Non-Af Amer) 58.3 BUN/Creatinine Ratio 20.4 H Glucose 108 H Estimat Average Glucose 131 Hemoglobin A1c 6.2 H Calcium 8.8 Magnesium 2.3 Total Bilirubin Direct Bilirubin AST ALT Alkaline Phosphatase Troponin I 0.029 Total Protein Albumin Triglycerides 131 Cholesterol 178 LDL Cholesterol, Calc 96 VLDL Cholesterol, Calc 26 HDL Cholesterol 56 Cholesterol/HDL Ratio 3 Lipase TSH 10/29/18 07:24 WBC RBC Hgb Hct MCV MCH MCHC RDW Std Deviation RDW Coeff of Rahul Plt Count MPV Immature Gran % (Auto) Neut % (Auto) Lymph % (Auto) Cassia % (Auto) Eos % (Auto) Baso % (Auto) Immature Gran # (Auto) Neut # (Auto) Lymph # (Auto) Cassia # (Auto) Eos # (Auto) Baso # (Auto) PT INR APTT 75.7 H* PTT Ratio 2.8 Sodium Potassium Chloride Carbon Dioxide Anion Gap BUN Creatinine Est Cr Clr Drug Dosing Est GFR ( Amer) Est GFR (Non-Af Amer) BUN/Creatinine Ratio Glucose Estimat Average Glucose Hemoglobin A1c Calcium Magnesium Total Bilirubin Direct Bilirubin AST ALT Alkaline Phosphatase Troponin I Total Protein Albumin Triglycerides Cholesterol LDL Cholesterol, Calc VLDL Cholesterol, Calc HDL Cholesterol Cholesterol/HDL Ratio Lipase TSH (1) Atrial flutter Atrial flutter type: unspecified Qualified Code(s): I48.92 - Unspecified atrial flutter
[2018-10-29] MEDS: SACCHAROMYCES BOULARDII 250 MG CAP PO SCH ×2 (11:41→19:33)
[2018-10-29] MEDS: DOXYCYCLINE HYCLATE 100 MG CAP PO SCH ×2 (11:41→19:33)
[2018-10-29] MEDS ORDERED: WARFARIN SOD 5 MG TAB PO ONE (12:25)
[2018-10-29] MEDS: ISOSORBIDE MONO EXTENDED REL 30 MG TABCR PO SCH (12:44)
[2018-10-29 16:07] LABS: Partial Thromboplastin Ratio 2.2
[2018-10-29 16:08] LABS: Partial Thromboplastin Time 60.6 Seconds (21.0-31.0)
--- NOTE | 2018-10-29 17:12 | Hospitalist Progress Note ---
Date of Service October 29, 2018 Assessment & Plan (1) Atrial flutter: Note from admission: This is an 88-year-old female who has a significant PMH of HTN, prediabetes, glaucoma, vitamin D deficiency, emphysema, history of cervical spine fusion x2 who presents to [facility] ED at the referral of her PCP. Patient was seen in outpatient setting by PCP. Complain of bilateral lower extremity weakness, shortness of breath, lightheadedness, heart racing, left- sided chest heaviness. An EKG was performed which revealed patient was in atrial flutter with AV block, questionable anterolateral infarct which was changed from week prior. She received ASA 81 mg x 4, placed on oxygen via NC and was sent to ED. In ED pt in rate controlled atrial flutter. CBC and CMP relatively unremarkable. Troponin detectable but WNL. CXR no acute abnormality with Chronic and mild emphysematous change Started on IV heparin per cardiology Recent tx for lower resp tract infection as outpt with prednisone 40mg x 5 day, doxycyline (still 3 days to complete course) and ventolin Resting echocardiogram (last echo 06/2017 mild concentric left ventricular hypertrophy, EF 50 to 54%, grade 1 diastolic dysfunction, mild aortic valve sclerosis, moderate 3+ mitral regurgitation, trace aortic insufficiency) Has been on intravenous heparin and Coumadin started from today Appreciate cardiology input and recommendation Patient reverted to sinus rhythm with extreme first-degree heart block and remains stable Repeat echo did show EF of 60 to 65% and no diastolic dysfunction Carvedilol has been changed to metoprolol (2) HTN (hypertension): Blood pressure elevated in ED Monitor and treat accordingly Coreg has been discontinued and replaced with beta-yasmeen (3) Hyperlipidemia: Diet controlled Last lipid panel 01/24 total chol 208, LDL 117 Previously has been on numerous statins in past, intolerant per prior cardiology notes Obtain fasting lipid panel in a.m. (4) Pre-diabetes: Last A1C 6.4 04/27 obtain A1C in a.m. monitor fasting glucose (5) Emphysema of lung: no acute exacerbation complete doxycycline course (additional 3 days) xopenex prn for sob/wheezing (6) Glaucoma: Continue eyedrops (7) Constipation: report per pt requesting stool softener/lax Senna S ordered, monitor abd soft, NT (8) DVT prophylaxis: IV heparin SCD/TEDS Disposition: to be determined Follow up: PCP Dr. Rojelio Richmond upon discharge Subjective 10/29 Patient was seen and examined in telemetry unit He has been feeling a lot better since admission and ambulating without any significant symptoms She denies any chest pain, shortness of breath, palpitation, no abdominal pain, nausea, vomiting Review of Systems Review of Systems: All systems reviewed and are unremarkable except as noted below Respiratory: no dyspnea Cardiovascular: no chest pain and no palpitations Physical Exam Physical Exam: No apparent distress at rest Constitutional: no acute distress and not ill appearing Eyes: PERRL, conjunctivae normal, anicteric sclerae ENMT: external ear and nose normal, oropharynx normal Neck: trachea midline, no thyromegaly Respiratory: normal respiratory effort; no respiratory distress Auscultation: + diminished lung sounds and + crackles (Minimal crackles at the bases) Cardiovascular: Rate/Rhythm: regular rate and regular rhythm Heart Sounds: + murmur (2/6 ejection systolic murmur over precordium) Gastrointestinal (Abdomen): Inspection/Auscultation: abdomen normal to inspection and normal bowel sounds Percussion/Palpation: abdomen soft Musculoskeletal: No acute arthritis in any of the joints Neurologic: Alert, awake and oriented x3 Lymphatic: no cervical or axillary lymphadenopathy Results & Data Vital Signs (Past 12 Hours) Vital Signs Temp Pulse Pulse Resp BP Pulse Ox 10/29/18 15:08 36.6 C 83 18 112/71 94 10/29/18 11:30 36.8 C 75 19 118/79 95 10/29/18 08:41 36.5 C 76 19 150/85 H 96 10/29/18 07:57 75 Laboratory Results Short CBC 10/29/18 Range/Units 02:51 WBC 7.39 (4.8-10.8) K/uL Hgb 14.4 (12.0-16.0) g/dL Hct 41.8 (37-47) % Plt Count 193 (130-400) K/uL BMP 10/28/18 10/29/18 15:12 02:51 Sodium 139 139 Potassium 3.9 3.9 Chloride 105 Carbon Dioxide 30 BUN 18 Creatinine 0.89 Glucose 108 H Calcium 8.8 Cardiac Enzymes 10/28/18 10/29/18 Range/Units 21:00 02:51 Troponin I 0.038 0.029 (0-0.045) ng/ml Liver Function 10/28/18 Range/Units 15:12 Direct Bilirubin < 0.1 (0-0.2) mg/dl AST 14 L (15-37) U/L Medications Administered Current Inpatient Medications Acetaminophen (Tylenol) 650 mg PO Q4H PRN PRN Reason: Pain or Fever Stop: 11/27/18 19:35 Al Hydrox/Mg Hydrox/Simethicone (Maalox) 15 ml PO Q4H PRN PRN Reason: Dyspepsia Stop: 11/27/18 19:35 Doxycycline Hyclate (Vibramycin) 100 mg PO BID [facility] Stop: 10/31/18 21:01 Last Admin: 10/29/18 11:41 Dose: 100 mg Documented by: Heparin Sodium/Dextrose (Heparin Sodium/Dextrose) 25,000 units in 500 mls @ 17 mls/hr IV .Q24H [facility]; Protocol Stop: 11/27/18 19:35 Last Titration: 10/29/18 16:18 Dose: 850 units/hr, 17 mls/hr Documented by: Isosorbide Mononitrate (Imdur Extended Rel) 30 mg PO [facility] Stop: 11/28/18 11:59 Last Admin: 10/29/18 12:44 Dose: 30 mg Documented by: Levalbuterol HCl (Xopenex 0.63 Mg/3 Ml Neb) 0.63 mg NEB Q6R PRN PRN Reason: sob/wheezing Stop: 11/27/18 19:35 Magnesium Hydroxide (Milk Of Magnesia) 30 ml PO Q12H PRN PRN Reason: Constipation Stop: 11/27/18 19:35 Metoprolol Succinate (Toprol Xl) 50 mg PO [facility] Stop: 11/29/18 08:59 Metoprolol Tartrate (Lopressor) 5 mg IV Q4 PRN PRN Reason: tachycardia Stop: 11/27/18 19:35 Ondansetron HCl (Zofran) 4 mg IV Q6H PRN PRN Reason: Nausea Stop: 11/27/18 19:35 Polyethylene Glycol (Miralax Powder Packet) 17 gm PO DAILY PRN PRN Reason: Constipation Stop: 11/27/18 19:35 Prednisolone Acetate (Pred Forte 1%) 1 drops OPL [facility] Stop: 11/27/18 20:59 Last Admin: 10/28/18 20:48 Dose: 1 drops Documented by: Prednisolone Acetate (Pred Forte 1%) 1 drops OPR QID [facility] Stop: 11/27/18 20:59 Last Admin: 10/29/18 14:09 Dose: 1 drops Documented by: Ranitidine HCl (Zantac) 150 mg PO BID [facility] Stop: 11/27/18 20:59 Last Admin: 10/29/18 08:21 Dose: 150 mg Documented by: Saccharomyces Boulardii (Florastor) 250 mg PO BID [facility] Stop: 11/27/18 20:59 Last Admin: 10/29/18 11:41 Dose: 250 mg Documented by: Senna/Docusate Sodium (Senokot S) [facility] Stop: 11/27/18 19:35 Last Admin: 10/29/18 08:19 Dose: 1 tab Documented by: Vitamin D (Vitamin D3) 2,000 units PO QAM [facility] Stop: 11/28/18 08:59 Last Admin: 10/29/18 08:20 Dose: 2,000 units Documented by: Warfarin Sodium (Coumadin) 5 mg PO DAILY@1600 [facility] Stop: 11/29/18 15:59 (1) Atrial flutter Atrial flutter type: unspecified Qualified Code(s): I48.92 - Unspecified atrial flutter
--- NOTE | 2018-10-29 17:35 | Communication Note ---
Date of Service: October 29, 2018 I placed ordered for [facility] anticoagulation clinic referral and requested post hospital cardiology appointment via telephone encounter in her outpatient chart.
[2018-10-29] MEDS: prednisoLONE acetate 1% OP SUSP 5 ML BTL OPL SCH (19:33)
[2018-10-29] MEDS: IPRATROPIUM BROMIDE/ALBUTEROL respimat INH INH SCH (20:43)
[2018-10-29] MEDS: HEPARIN SODIUM/DEXTROSE 25,000 UNITS/500 ML BAG IV SCH (20:45)
[2018-10-30] MEDS: IPRATROPIUM BROMIDE/ALBUTEROL respimat INH INH SCH ×2 (07:48→12:16)
[2018-10-30] MEDS: CHOLECALCIFEROL 1,000 UNITS TAB PO SCH (07:49)
[2018-10-30] MEDS: ISOSORBIDE MONO EXTENDED REL 30 MG TABCR PO SCH (07:50)
[2018-10-30] MEDS: DOXYCYCLINE HYCLATE 100 MG CAP PO SCH (07:50)
[2018-10-30] MEDS: SACCHAROMYCES BOULARDII 250 MG CAP PO SCH (07:50)
[2018-10-30] MEDS: prednisoLONE acetate 1% OP SUSP 5 ML BTL OPR SCH ×2 (07:51→12:16)
[2018-10-30] MEDS: DOCUSATE SODIUM/SENNA 50/8.6MG TAB PO SCH (07:51)
[2018-10-30 08:26] LABS: Hematocrit (blood only) 41.3 % (37-47); Hemoglobin 14.7 g/dL (12.0-16.0); Mean Corpuscular Hgb Conc 35.6 g/dL (32-36); Mean Corpuscular Volume 92.8 fL (80-100); Mean Platelet Volume 9.1 fL (7.4-10.4); Platelet Count 164 K/uL (130-400); RDW Coefficient of Variation 12.4 % (11.5-14.5); Red Blood Count 4.45 M/uL (4.2-5.4); White Blood Count 5.81 K/uL (4.8-10.8)
[2018-10-30 08:51] LABS: INR 1.1 (0.9-1.1); Partial Thromboplastin Ratio 2.3
[2018-10-30] MEDS ORDERED: METOPROLOL SUCC 50MG EXT REL TAB PO SCH (09:00)
[2018-10-30 09:01] LABS: BUN Creatinine Ratio 16.9 (10-20); Calcium 9.3 mg/dl (8.5-10.1); Creatinine Clr Calc Pharmacy 38.2 ml/min; Est GFR (African American) 56.6; Est GFR (Non-African American) 48.8; Potassium 4.2 mmol/L (3.5-5.1)
[2018-10-30 09:09] LABS: Partial Thromboplastin Time 61.1 Seconds (21.0-31.0)
--- NOTE | 2018-10-30 11:32 | Hospitalist Progress Note ---
Date of Service October 30, 2018 Assessment & Plan (1) Atrial flutter: Note from admission: This is an 88-year-old female who has a significant PMH of HTN, prediabetes, glaucoma, vitamin D deficiency, emphysema, history of cervical spine fusion x2 who presents to [facility] ED at the referral of her PCP. Patient was seen in outpatient setting by PCP. Complain of bilateral lower extremity weakness, shortness of breath, lightheadedness, heart racing, left- sided chest heaviness. An EKG was performed which revealed patient was in atrial flutter with AV block, questionable anterolateral infarct which was changed from week prior. She received ASA 81 mg x 4, placed on oxygen via NC and was sent to ED. In ED pt in rate controlled atrial flutter. CBC and CMP relatively unremarkable. Troponin detectable but WNL. CXR no acute abnormality with Chronic and mild emphysematous change Started on IV heparin per cardiology Recent tx for lower resp tract infection as outpt with prednisone 40mg x 5 day, doxycyline (still 3 days to complete course) and ventolin Resting echocardiogram (last echo 06/2017 mild concentric left ventricular hypertrophy, EF 50 to 54%, grade 1 diastolic dysfunction, mild aortic valve sclerosis, moderate 3+ mitral regurgitation, trace aortic insufficiency) Has been on intravenous heparin and Coumadin started from today Appreciate cardiology input and recommendation Patient reverted to sinus rhythm with extreme first-degree heart block and remains stable Repeat echo did show EF of 60 to 65% and no diastolic dysfunction Carvedilol has been changed to metoprolol Clinically stable and denies any symptoms Has been ambulating in the hallways without any symptoms and/or tachycardia or arrhythmias Can be discharged today as per material handler floorperson and has an appointment as an outpatient with them already (2) HTN (hypertension): Blood pressure elevated in ED Monitor and treat accordingly Coreg has been discontinued and replaced with beta-yasmeen (3) Hyperlipidemia: Diet controlled Last lipid panel 01/24 total chol 208, LDL 117 Previously has been on numerous statins in past, intolerant per prior cardiology notes Obtain fasting lipid panel in a.m.= unremarkable but do note that HDL is 56 which is good (4) Pre-diabetes: Last A1C 6.4 04/27 obtain A1C in a.m-6.2 on 10/29. monitor fasting glucose (5) Emphysema of lung: no acute exacerbation complete doxycycline course (additional 3 days) xopenex prn for sob/wheezing (6) Glaucoma: Continue eyedrops (7) Constipation: report per pt requesting stool softener/lax Senna S ordered, monitor abd soft, NT (8) DVT prophylaxis: IV heparin SCD/TEDS Disposition: to be determined Follow up: PCP Dr. Rojelio Richmond upon discharge We will discharge her today Subjective 10/29 Patient was seen and examined in telemetry unit He has been feeling a lot better since admission and ambulating without any significant symptoms She denies any chest pain, shortness of breath, palpitation, no abdominal pain, nausea, vomiting 10/30 The patient was seen and examined in telemetry unit She denies any complaints whatsoever except some problem with the food that she was given this morning Denies any chest pain, palpitation, shortness of breath with ambulation She wants to go home today Review of Systems Review of Systems: All systems reviewed and are unremarkable except as noted below Respiratory: no dyspnea and no dyspnea on exertion Cardiovascular: no chest pain and no palpitations Physical Exam Physical Exam: No apparent distress at rest and sitting on a chair without any complaints Constitutional: no acute distress and not ill appearing Eyes: PERRL, conjunctivae normal, anicteric sclerae ENMT: external ear and nose normal, oropharynx normal Neck: trachea midline, no thyromegaly Respiratory: normal respiratory effort; no respiratory distress Auscultation: + diminished lung sounds Cardiovascular: Rate/Rhythm: regular rate and regular rhythm Heart Sounds: + murmur (2/6 ejection systolic murmur over precordium) Gastrointestinal (Abdomen): Inspection/Auscultation: abdomen normal to inspection and normal bowel sounds Percussion/Palpation: abdomen soft Musculoskeletal: No acute arthritis in any of the joints Neurologic: Alert, awake and oriented x3 Lymphatic: no cervical or axillary lymphadenopathy Results & Data Vital Signs (Past 12 Hours) Vital Signs Temp Pulse Resp BP Pulse Ox 10/30/18 07:15 36.5 C 70 18 151/88 H 96 10/30/18 02:31 36.4 C L 68 16 137/76 93 10/29/18 23:41 36.9 C 78 18 125/77 93 Laboratory Results Short CBC 10/30/18 Range/Units 08:14 WBC 5.81 (4.8-10.8) K/uL Hgb 14.7 (12.0-16.0) g/dL Hct 41.3 (37-47) % Plt Count 164 (130-400) K/uL BMP 10/30/18 08:14 Sodium 138 Potassium 4.2 Chloride 103 Carbon Dioxide 29 BUN 17 Creatinine 1.03 Glucose 165 H Calcium 9.3 Medications Administered Current Inpatient Medications Acetaminophen (Tylenol) 650 mg PO Q4H PRN PRN Reason: Pain or Fever Stop: 11/27/18 19:35 Last Admin: 10/30/18 07:47 Dose: 650 mg Documented by: Al Hydrox/Mg Hydrox/Simethicone (Maalox) 15 ml PO Q4H PRN PRN Reason: Dyspepsia Stop: 11/27/18 19:35 Albuterol (Combivent Respimat) 1 puffs INH QID [facility] Stop: 11/28/18 20:59 Last Admin: 10/30/18 07:48 Dose: 1 puffs Documented by: Doxycycline Hyclate (Vibramycin) 100 mg PO BID [facility] Stop: 10/31/18 21:01 Last Admin: 10/30/18 07:50 Dose: 100 mg Documented by: Heparin Sodium/Dextrose (Heparin Sodium/Dextrose) 25,000 units in 500 mls @ 17 mls/hr IV .Q24H [facility]; Protocol Stop: 11/27/18 19:35 Last Titration: 10/30/18 09:10 Dose: 850 units/hr, 17 mls/hr Documented by: Isosorbide Mononitrate (Imdur Extended Rel) 30 mg PO [facility] Stop: 11/28/18 11:59 Last Admin: 10/30/18 07:50 Dose: 30 mg Documented by: Levalbuterol HCl (Xopenex 0.63 Mg/3 Ml Neb) 0.63 mg NEB Q6R PRN PRN Reason: sob/wheezing Stop: 11/27/18 19:35 Magnesium Hydroxide (Milk Of Magnesia) 30 ml PO Q12H PRN PRN Reason: Constipation Stop: 11/27/18 19:35 Metoprolol Succinate (Toprol Xl) [facility] Stop: 11/29/18 08:59 Last Admin: 10/30/18 07:50 Dose: 50 mg Documented by: Metoprolol Tartrate (Lopressor) 5 mg IV Q4 PRN PRN Reason: tachycardia Stop: 11/27/18 19:35 Ondansetron HCl (Zofran) 4 mg IV Q6H PRN PRN Reason: Nausea Stop: 11/27/18 19:35 Polyethylene Glycol (Miralax Powder Packet) 17 gm PO DAILY PRN PRN Reason: Constipation Stop: 11/27/18 19:35 Prednisolone Acetate (Pred Forte 1%) 1 drops OPL HS [facility] Stop: 11/27/18 20:59 Last Admin: 10/29/18 19:33 Dose: 1 drops Documented by: Prednisolone Acetate (Pred Forte 1%) 1 drops OPR QID [facility] Stop: 11/27/18 20:59 Last Admin: 10/30/18 07:51 Dose: 1 drops Documented by: Ranitidine HCl (Zantac) 150 mg PO BID [facility] Stop: 11/27/18 20:59 Last Admin: 10/30/18 07:49 Dose: 150 mg Documented by: Saccharomyces Boulardii (Florastor) 250 mg PO BID [facility] Stop: 11/27/18 20:59 Last Admin: 10/30/18 07:50 Dose: 250 mg Documented by: Senna/Docusate Sodium (Senokot S) 1 tab PO QAM [facility] Stop: 11/27/18 19:35 Last Admin: 10/30/18 07:51 Dose: 1 tab Documented by: Vitamin D (Vitamin D3) 2,000 units PO QAM [facility] Stop: 11/28/18 08:59 Last Admin: 10/30/18 07:49 Dose: 2,000 units Documented by: Warfarin Sodium (Coumadin) 5 mg PO DAILY@1600 [facility] Stop: 11/29/18 15:59 (1) Atrial flutter Atrial flutter type: unspecified Qualified Code(s): I48.92 - Unspecified atrial flutter
[2018-10-30] MEDS ORDERED: WARFARIN SOD 5 MG TAB PO SCH (16:00)
--- NOTE | 2018-10-31 07:49 | Discharge Summary ---
Date of Service October 31, 2018 Admission HPI Per Admitting Provider This is an 88-year-old female who has a significant PMH of HTN, prediabetes, glaucoma, vitamin D deficiency, emphysema, history of cervical spine fusion x2 who presents to [facility] ED at the referral of her PCP. Patient was seen in outpatient setting by Dr.Frank Richmond for follow-up from a week prior. She continued to complain of bilateral lower extremity weakness, shortness of breath, lightheadedness, heart racing, left-sided chest heaviness. An EKG was performed which revealed patient was in atrial flutter with AV block, questionable anterolateral infarct which was changed from week prior. She received ASA 81 mg x 4, placed on oxygen via NC and was sent to ED. Also of note patient seen by PCP on 10/20 secondary to shortness of breath, cough. Was placed on doxycycline, prednisone, inhaler. Lab work was performed which revealed elevated proBNP and because of this was placed on Lasix 20 mg for 3 days. Upon my evaluation patient elicits for approximately 1 month she has been having shortness of breath with exertion, heart racing, left-sided chest pressure that is nonradiating, feeling weak at the knees. Symptoms would come and go, but over the past week has been coming more constant. She has not fallen or lost consciousness. Significant decrease in exercise tolerance, little activity makes patient very fatigue, weak and sob. "I walked into [facility] to get [facility] today and just the walk in there had me weak at the knees." Had episode of BPPV at end of September but this has since resolved. Her cough is much improved. She denies any fever, chills, sweats, shortness of breath, orthopnea, PND, edema, wheezing, abdominal pain, dysuria, hematuria, increased urgency or frequency with urination. Her appetite has been good. She did have nausea and episode of emesis x2 yesterday secondary to taking medication on empty stomach. Admission Exam Per Admitting Provider Physical Exam: Constitutional: WD/WN, vitals as above, elderly, F, NAD, sitting up in bed, pleasant, conversing easily Head: Normocephalic, Atraumatic Eyes: L lower eyelid inverted, conjunctivae normal, anicteric sclerae ENMT: external ear and nose normal, oropharynx normal Neck: trachea midline, no thyromegaly normal visual inspection Respiratory: normal respiratory effort, lungs clear to auscultation, no wheeze, rales, rhonchi. Normal insp/exp effort, no accessory muscle use Cardiovascular: IRR/IRR, II/ KOKI best at apex, no edema Vessels: no JVD or carotid bruit Chest: normal inspection of chest Abdomen: normal bowel sounds, soft, nontender, no hepatosplenomegaly Musculoskeletal: no cyanosis or clubbing, extremities motor strength 5/5 Skin: no rashes, warm and dry normal turgor Neurologic: no face palsy, no dysarthria CN's II-XI intact bilaterally and moves all extremities Psychiatric: A+Ox3, euthymic affect Lymphatic: no cervical or axillary lymphadenopathy : deferred Principal Diagnosis Atrial flutter with RVR, hypertension, emphysema of the lung Discharge Exam Constitutional no acute distress and not ill appearing Eyes PERRL, conjunctivae normal, anicteric sclerae ENMT external ear and nose normal, oropharynx normal Neck trachea midline, no thyromegaly Respiratory normal respiratory effort; no respiratory distress Auscultation: + diminished lung sounds Cardiovascular Rate/Rhythm: regular rate and regular rhythm Heart Sounds: + murmur (2/6 ejection systolic murmur over precordium) Gastrointestinal (Abdomen) Inspection/Auscultation: abdomen normal to inspection and normal bowel sounds Percussion/Palpation: abdomen soft Lymphatic no cervical or axillary lymphadenopathy Discharge Data Allergies Allergy/AdvReac Type Severity Reaction Status Date / Time codeine Allergy Intermediate GI SYMPTOMS Unverified 10/28/18 16:19 Iodinated Contrast- Oral and Allergy Intermediate GI SYMPTOMS Unverified 10/28/18 16:19 IV Dye acetaminophen Allergy Mild AGITATION Unverified 10/28/18 16:19 Consultations 10/28/18 17:24 ED Decision to Admit Stat 10/28/18 19:36 Consult Cardiology Routine Consult Case Management - Discharge Planning Routine Hospital Course (1) Atrial flutter: Note from admission: This is an 88-year-old female who has a significant PMH of HTN, prediabetes, glaucoma, vitamin D deficiency, emphysema, history of cervical spine fusion x2 who presents to [facility] ED at the referral of her PCP. Patient was seen in outpatient setting by PCP. Complain of bilateral lower extremity weakness, shortness of breath, lightheadedness, heart racing, left- sided chest heaviness. An EKG was performed which revealed patient was in atrial flutter with AV block, questionable anterolateral infarct which was changed from week prior. She received ASA 81 mg x 4, placed on oxygen via NC and was sent to ED. In ED pt in rate controlled atrial flutter. CBC and CMP relatively unremarkable. Troponin detectable but WNL. CXR no acute abnormality with Chronic and mild emphysematous change Started on IV heparin per cardiology Recent tx for lower resp tract infection as outpt with prednisone 40mg x 5 day, doxycyline (still 3 days to complete course) and ventolin Resting echocardiogram (last echo 06/2017 mild concentric left ventricular hypertrophy, EF 50 to 54%, grade 1 diastolic dysfunction, mild aortic valve sclerosis, moderate 3+ mitral regurgitation, trace aortic insufficiency) Has been on intravenous heparin and Coumadin started from today Appreciate cardiology input and recommendation Patient reverted to sinus rhythm with extreme first-degree heart block and remains stable Repeat echo did show EF of 60 to 65% and no diastolic dysfunction Carvedilol has been changed to metoprolol Clinically stable and denies any symptoms Has been ambulating in the hallways without any symptoms and/or tachycardia or arrhythmias Can be discharged today as per speech therapy director and has an appointment as an outpatient with them already (2) HTN (hypertension): Blood pressure elevated in ED Monitor and treat accordingly Coreg has been discontinued and replaced with beta-yasmeen (3) Hyperlipidemia: Diet controlled Last lipid panel 01/24 total chol 208, LDL 117 Previously has been on numerous statins in past, intolerant per prior cardiology notes Obtain fasting lipid panel in a.m.= unremarkable but do note that HDL is 56 which is good (4) Pre-diabetes: Last A1C 6.4 04/27 obtain A1C in a.m-6.2 on 10/29. monitor fasting glucose (5) Emphysema of lung: no acute exacerbation complete doxycycline course (additional 3 days) xopenex prn for sob/wheezing (6) Glaucoma: Continue eyedrops (7) Constipation: report per pt requesting stool softener/lax Senna S ordered, monitor abd soft, NT (8) DVT prophylaxis: IV heparin SCD/TEDS Disposition: to be determined Follow up: PCP Dr. Rojelio Richmond upon discharge We will discharge her today Total Time Total Time Spent Total Time Spent (In Minutes): 35 minutes Total Time Includes: Examination of the Patient, Discharge Planning, Medication Reconciliation and Communication With Other Providers Discharge Plan Discharge Items Patient Disposition: Home - Home Health Services Reason For Visit: NEW [employer] Discharge Diagnosis: Atrial flutter with RVR, hypertension, emphysema of the lung Condition: Good Discharge Goals: Decrease discomfort, Improve function and Increase independence Activity: Resume your previous activity Non-emergency contact: Primary Care Provider Call non-emergency contact if: you have any medication questions and your symptoms worsen Follow-up/Referrals: Gabriela Diaz MD [Primary Care Provider] - (Your PCPs office will call with an appointment on Thursday. Please keep appointment with speech therapy director and coagulation clinic.) Diet: Heart Healthy Addtl Provider Instructions: Carvedilol has been discontinued New medication metoprolol and isosorbide mononitrate. Please take precaution to avoid falls Prescriptions: New metoprolol succinate 50 mg Tablet Extended Release 24 Hr 50 mg PO QAM 30 Days Qty: 30 RF: 0 isosorbide mononitrate 30 mg Tablet Extended Release 24 Hr 30 mg PO QAM 30 Days Qty: 30 RF: 0 warfarin [Coumadin] 5 mg Tablet 5 mg PO DAILY@1600 30 Days Qty: 30 RF: 0 Continued doxycycline hyclate 100 mg capsule 100 mg PO BID RF: 0 prednisolone acetate 1 % drops,suspension 1 drp OPL HS RF: 0 prednisolone acetate 1 % drops,suspension 1 drp OPR QID RF: 0 ranitidine HCl 150 mg tablet 150 mg PO BID RF: 0 cholecalciferol (vitamin D3) [Vitamin D3] 1,000 unit (25 mcg) Tablet 2,000 unit PO QAM RF: 0 Combivent Respimat 20-100 mcg/actuation mist 1 puff inhalation QID RF: 0 albuterol sulfate [Ventolin HFA] 90 mcg/actuation Hfa Aerosol Inhaler 2 puff INHALATION Q6H PRN (Reason: Shortness Of Breath) RF: 0 aspirin [Aspir-81] 81 mg Tablet,Delayed Release (Dr/Ec) 81 mg PO DAILY RF: 0 Saccharomyces boulardii 250 mg Capsule 250 mg PO BID RF: 0 Discontinued carvedilol 6.25 mg Tablet 6.25 mg PO BID RF: 0 Stand-Alone Forms: [employer] [facility]/Other Patient Handouts: Warfarin Sodium Oral tablet, Metoprolol Succinate Hydrochlorothiazide Oral tablet extended-release, Isosorbide Mononitrate Oral tablet extended-release, A1C, Glucose Blood, Prediabetes, Coumadin, DASH Plan Eat Heart Healthy Food, Diabetes Meal Planning, Foods Heart Healthy, Metabolic Syndrome Lowering Your Blood Pressure Discharge Orders: Discharge Order (Routine); Ordered 10/30/18 Ordered By: Morenita Jacinto Admission Data Admit Date/Time: 10/28/18 17:44 Attending Provider: Morenita Jacinto Admit Provider: Mathieu Street Primary Care Provider: Gabriela Diaz Other Providers: Kayden Feranndes ; Mathieu Street Service: Telemetry Other Interventions: Discharge Summary Assessment (RN) Last Done: 10/30/18 13:11 DC Date/Time DO NOT enter until pt leaves facility: 10/30/18 13:50
== END 2018-10-30 13:50 | disposition home health service (06) | DRG 310 ==
LOC: ED 15:36 → 2S 17:44

== ENCOUNTER 2019-05-17 11:11 | Inpatient (IN) ==
[2019-05-17 11:42] LABS: Basophils # (auto) 0.03 K/uL (0-0.2); Basophils % (auto) 0.5 %; Eosinophils # (auto) 0.21 K/uL (0-0.5); Eosinophils % (auto) 3.6 %; Hematocrit (blood only) 44.1 % (37-47); Hemoglobin 15.2 g/dL (12.0-16.0); Immature Granulocytes # (auto) 0.01 K/uL (0.00-0.02); Immature Granulocytes % (auto) 0.2 %; Lymphocytes # (auto) 2.09 K/uL (1.2-3.4); Mean Corpuscular Hemoglobin 31.9 pg (25-34); Mean Corpuscular Hgb Conc 34.5 g/dL (32-36); Mean Corpuscular Volume 92.5 fL (80-100); Mean Platelet Volume 9.8 fL (7.4-10.4); Monocytes # (auto) 0.54 K/uL (0.11-0.59); Monocytes % (auto) 9.3 %; Neutrophils # (auto) 2.93 K/uL (1.4-6.5); Neutrophils % (auto) 50.4 %; Platelet Count 202 K/uL (130-400); RDW Coefficient of Variation 12.6 % (11.5-14.5); RDW Standard Deviation 42.6 fL (36.4-46.3); Red Blood Count 4.77 M/uL (4.2-5.4); White Blood Count 5.81 K/uL (4.8-10.8)
[2019-05-17 11:56] LABS: INR 2.2 (0.9-1.1); Partial Thromboplastin Ratio 1.3; Prothrombin Time 22.3 Seconds (9.0-12.0)
[2019-05-17 12:00] LABS: Alanine Aminotransferase 24 U/L (12-78); Albumin Level 3.7 gm/dl (3.4-5.0); Aspartate Aminotransferase 27 U/L (15-37); BUN Creatinine Ratio 17.1 (10-20); Blood Urea Nitrogen 16 mg/dl (7-18); Calcium 9.9 mg/dl (8.5-10.1); Carbon Dioxide 30 mmol/L (21-32); Chloride 104 mmol/L (98-107); Est GFR (African American) 64.4; Est GFR (Non-African American) 55.6; Glucose 130 mg/dl (70-99); Potassium 3.9 mmol/L (3.5-5.1); Sodium 137 mmol/L (136-145)
[2019-05-17] MEDS ORDERED: NITROGLYCERIN SL 0.4 MG/TAB TAB SL STA (12:02)
[2019-05-17] MEDS ORDERED: SODIUM CHLORIDE 0.9% 1000ML 500 ML IV ONE (12:02)
[2019-05-17 12:05] LABS: Albumin Globulin Ratio 0.9 (0.9-2); Alkaline Phosphatase 68 U/L (45-117); Bilirubin,Total 0.4 mg/dl (0.2-1); Globulin 3.9 gm/dl (2.5-4.0); Total Protein 7.6 gm/dl (6.4-8.2); Troponin I < 0.015 ng/ml (0-0.045)
--- NOTE | 2019-05-17 12:34 | XRay Report ---
XR chest 1V portable CLINICAL HISTORY: Chest Pain dyspnea COMPARISON STUDY: 10/28/2018 FINDINGS: Baseline emphysematous change is present. Mildly progressive basilar interstitial change is noted. Minimal upper lungs are clear. No well-defined focal infiltrative process. IMPRESSION: Mildly progressive bibasilar interstitial change. ACT 112: Negative or not required by law. The above report was generated using voice recognition software. It may contain grammatical, syntax or spelling errors. Electronically signed by: Eleuterio Pal M.D. 05/17/2019 12:33 PM
[2019-05-17] MEDS ORDERED: LORazepam 0.5 MG/1 ML VIAL IV STA (12:35)
[2019-05-17] MEDS ORDERED: OPTIRAY 320 125ml IV PRN (13:20)
[2019-05-17] MEDS ORDERED: ONDANSETRON INJ 2 MG/ML 2 ML VIAL ONE (13:33)
[2019-05-17] MEDS ORDERED: ONDANSETRON INJ 2 MG/ML 2 ML VIAL IV STA (13:33)
--- NOTE | 2019-05-17 13:36 | CT Scan Report ---
CT ANGIOGRAM OF THE CHEST CLINICAL HISTORY: Chest and back pain. Possible pulmonary embolism. COMPARISON STUDY: April 02, 2018 TECHNIQUE: Following the IV administration of 119 mL of Optiray-320, CT angiogram of the thorax was p erformed from the thoracic inlet to the lung bases utilizing the pulmonary embolus protocol. Images a re reviewed in the axial, sagittal, and coronal planes. IV contrast was administered without complica tion. MIP imaging was performed. A dose lowering technique was utilized adhering to the principles o f ALARA. CT DOSE: 504.51 mGycm FINDINGS: There is a multinodular thyroid gland. No pathologically enlarged axillary mediastinal or hilar lymph nodes were visualized. There was no evidence of thoracic aortic dilatation. There were no pulmonary artery filling defects to indicate acute pulmonary embolism. No pleural effusions are visualized. There is respiratory motion artifact. There is mosaic attenuation the lungs suggesting underlying air trapping. There is a stable 6 mm right apical pulmonary nodule IMPRESSION: 1. No evidence of acute pulmonary embolism 2. Stable mosaic attenuation the lungs consistent with air trapping 3. Stable solid 6 mm right apical pulmonary nodule ACT 112: Negative or not required by law. Electronically signed by: Abhinav Diaz M.D. 05/17/2019 1:34 PM
--- NOTE | 2019-05-17 14:43 | History & Physical Report ---
Date of Service May 17, 2019 Assessment & Plan (1) Near syncope: Pt is 89 y/o F with PMH paroxysmal atrial fibrillation, atrial flutter on Coumadin, first-degree AV block, HTN, mitral regurgitation presented to ER with complaint of chest pain today and intermittent pre-syncope. She reports HR at home varying 40 and 140. Recently admitted to [facility] 05/06/2019- 05/10/2019 for near syncope and had Toprol changed to metoprolol tartrate Recent echo at [facility] interpretation: EF: 55-60%, grade 1 diastolic dysfunction, no significant valvular stenosis or regurgitation In ER received 1 nitro SL with relief of CP. EKG abnormal with possible intermittent complete heart block. Negative initial troponin. no significant electrolyte abnormality In ER vitals stable with HR 60's-80's, BP: 136/71, 120/88, R: 16-20, pulse ox 92-95% on RA and afebrile. Pt without dizziness, syncope, palpitations in ER. Reports chronic chest pressure however the CP had earlier has resolved CTA chest: No PE DDX: tachybrady syndrome, heart block -Monitor Vitals -Repeat EKG in am -Will trend troponin -Hold metoprolol for now -Continue isosorbide -Pacer pads at bedside -Nitro prn CP and repeat EKG for CP -Cardiology consult, ER physician contacted Dr Jamison and aware (2) Paroxysmal atrial fibrillation: On Coumadin INR: 2.2 -Hold Coumadin currently in case of possible procedure -INR in am -Holding metoprolol as above (3) HTN (hypertension): -Continue amlodipine, valsartan with holding parameters DVT Prophylaxis -SCDs when INR <2.0 Conditional code - CPR, defibrillation with no intubation or mechanical ventilation as per discussion with pt and pt's daughter Follows with Dr Rojelio Richmond for routine care Pt was seen and care coordinated with Dr Jacinto. See addendum History of Present Illness Chief Complaint: CP Primary Care Provider: Gabriela Richmond MD Pt is 89 y/o F with PMH paroxysmal atrial fibrillation, atrial flutter on Coumadin, first-degree AV block, HTN, mitral regurgitation presented to ER with complaint of chest pain. Patient reports she has chronic anterior chest pressure. Reports today woke up and BP was 90/50. Reports later in morning HR elevated to 140 and had anterior chest pain. Denies any associated diaphoresis, shortness of breath. Patient reports for the past 6 months she has been having intermittent presyncopal episodes with standing or walking. She reports she has been using a blood pressure cuff at home and her pulse rate has been between 40 and 140. Patient states she has noticed that when she has presyncope described as feeling like she is in a pass out and has associated leg weakness her pulse is usually in the 40s. Patient denies any palpitations. She was recently admitted to [facility] 05/06/2019-05/10/2019 for near syncope. It is reported that she had first-degree AV block with long VA interval and episodes of hypotension, transient tachycardia. Had negative troponins. Her Toprol was changed to Toprol tartrate 12.5 mg twice daily. Follow-up at PCPs office and was changed to 3 times daily. Pt states that since hospital discharge she has continued to note varying heart rates and blood pressures at home. Patient reports sensation that she is going to "blackout" a couple of days ago was standing, denies any syncopal episode this past week. Reports having intermittent PORRAS's, denies PORRAS currently. Denies fever/chills, diaphoresis, N/V/D/C, vision changes, neck pain, orthopnea, cough, sore throat, choking, otalgia, rhinorrhea, abdominal pain, paresthesias, extremity edema, rashes, urinary symptoms. Allergies Allergy/AdvReac Type Severity Reaction Status Date / Time codeine Allergy Intermediate GI SYMPTOMS Unverified 05/17/19 12:26 Iodinated Contrast Media Allergy Intermediate GI SYMPTOMS Unverified 05/17/19 12:26 acetaminophen Allergy Mild AGITATION Unverified 05/17/19 12:26 polyethylene glycol 3350 Allergy Hives Unverified 05/17/19 12:26 [From Miralax] hydrocodone [From Vicodin] AdvReac Intermediate Shakiness Unverified 05/17/19 12:26 Home Medications Home Medications Medication Instructions Recorded Confirmed Type Combivent Respimat 1 puff INHALATION QID 10/28/18 05/17/19 History Saccharomyces boulardii 250 mg PO BID 10/28/18 05/17/19 History albuterol sulfate [Ventolin HFA] 2 puff INHALATION Q6H PRN 10/28/18 05/17/19 History cholecalciferol (vitamin D3) 2,000 unit PO QAM 10/28/18 05/17/19 History [Vitamin D3] prednisolone acetate 1 drp OPL HS 10/28/18 05/17/19 History amlodipine 5 mg PO DAILY 05/17/19 05/17/19 History isosorbide dinitrate 5 mg PO BID 05/17/19 05/17/19 History metoprolol tartrate 12.5 mg PO TID 05/17/19 05/17/19 History valsartan 80 mg PO DAILY 05/17/19 05/17/19 History warfarin 5 mg PO DIRECTED 05/17/19 05/17/19 History Past Med/Surg History Medical History 1st degree AV block Emphysema of lung (Chronic) Glaucoma (Chronic) Heart murmur History of atrial flutter HTN (hypertension) (Chronic) HTN (hypertension) Hyperlipidemia Lumbar degenerative disc disease (Chronic) Mitral regurgitation Paroxysmal atrial fibrillation Pre-diabetes (Chronic) Surgical History 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" H/O neck surgery (Resolved) "cervical laminectomy Dr Suleiman Bean 2010" and revision in 2018 History of section (Resolved) "x4" History of cholecystectomy (Resolved) History of hysterectomy (Resolved) History of keratoplasty (Chronic) History of partial colectomy (Resolved) "diverticulitis" Family History Mother Diabetes Stroke Sister Diabetes Other Family history non-contributory Social History Preferred Language: Serbian Communication Ability: Effective 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 Beliefs That Will Affect Care: Christian marital status: / Current Living Situation: Alone current occupational status: retired Feels Safe at Home: Yes Smoking Status: Never smoker Second Hand Exposure: No ; Hx Alcohol Use: No Hx Substance Use: No Review of Systems Review of Systems: All systems reviewed & are unremarkable except as noted in HPI & below Physical Exam Physical Exam: General: no acute distress, WDWN Head: normocephalic, atraumatic Eyes: left eye PERRL, EOM's intact, conjunctiva non-injected, Right eye: cloudy, anicteric ENT: normal inspection external ears, nose, mucous membranes moist Neck: supple, trachea midline Lungs: clear, no respiratory distress, no wheezing/rhonchi/rales CV: RRR, +systolic murmur, no pretibial edema Abd: normal BS, soft, non-tender Ext: no cyanosis, no calf tenderness Neuro: A&O x 3, no focal deficits noted, normal affect Skin: warm, dry Results & Data Vital Signs (Past 12 Hours) Vital Signs Temp Pulse Pulse Resp BP BP Pulse Ox 05/17/19 14:00 82 17 122/82 92 05/17/19 12:23 86 16 120/88 95 05/17/19 11:17 36.6 C 68 20 136/71 92 Laboratory Results Short CBC 05/17/19 Range/Units 11:30 WBC 5.81 (4.8-10.8) K/uL Hgb 15.2 (12.0-16.0) g/dL Hct 44.1 (37-47) % Plt Count 202 (130-400) K/uL BMP 05/17/19 11:30 Sodium 137 Potassium 3.9 Chloride 104 Carbon Dioxide 30 BUN 16 Creatinine 0.92 Glucose 130 H Calcium 9.9 Cardiac Enzymes 05/17/19 Range/Units 11:30 Troponin I < 0.015 (0-0.045) ng/ml Liver Function 05/17/19 Range/Units 11:30 Total Bilirubin 0.4 (0.2-1) mg/dl AST 27 (15-37) U/L ALT 24 (12-78) U/L Alkaline Phosphatase 68 (45-117) U/L Albumin 3.7 (3.4-5.0) gm/dl Diagnostic Findings CXR: IMPRESSION: Mildly progressive bibasilar interstitial change. CTA CHEST: IMPRESSION: 1. No evidence of acute pulmonary embolism 2. Stable mosaic attenuation the lungs consistent with air trapping 3. Stable solid 6 mm right apical pulmonary nodule Code Status & VTE Plan VTE Prophylaxis Plan VTE Prophylaxis will be ordered: Yes Supervising Physician Co-Signing Physician Notes Attending addendum Patient was seen and examined in emergency room in presence of the daughters She was brought in with chest pain and significant bradycardia and tachyarrhythmia with increasing blood pressure She was feeling a lot better following administration of nitroglycerin in the emergency room Denies any symptoms during the examination On examination Lying in bed comfortably Hemodynamically stable Chest-clear to auscultate bilaterally Heart-S1-S2, irregular Abdomen-benign Extremities-trace edema bilateral 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
--- NOTE | 2019-05-17 15:30 | Electrocardiogram Report ---
Test Reason : Blood Pressure : / mmHG Vent. Rate : 085 BPM Atrial Rate : 122 BPM P-R Int : 000 ms QRS Dur : 088 ms QT Int : 382 ms P-R-T Axes : 085 029 062 degrees QTc Int : 454 ms Poor data quality, interpretation may be adversely affected Left atrial tachycardia vs sinus tachycardia with variable A-V block Anterior infarct (cited on or before 02-APR-2018) Abnormal ECG When compared with ECG of 30-OCT-2018 06:35, Variable AV block is now present Confirmed by Zbigniew Bhagat ([id number]) on 05/17/2019 3:30:19 PM Referred By: Confirmed By:Zbigniew Bhagat
[2019-05-17] MEDS ORDERED: ALBUTEROL HFA 8 GM INHALER INH PRN (15:59)
[2019-05-17] MEDS ORDERED: NITROGLYCERIN SL 0.4 MG/TAB TAB SL PRN (15:59)
[2019-05-17] MEDS: ACETAMINOPHEN 325 MG TAB PO PRN (16:21)
[2019-05-17] MEDS: ISOSORBIDE DINITRATE 5 MG TAB PO SCH (16:55)
--- NOTE | 2019-05-17 17:23 | Emergency Department Note ---
Entered by Geovanni Salamanca acting as a scribe for History of Present Illness General Chief complaint: Cardiac Assessment Stated complaint: TIGHTNESS IN CHEST, BP IRRATIC Time Seen by Provider: 05/17/19 11:35 Source: patient and family (daughter) Limitations: no limitations History of Present Illness Onset (ago): hour(s) 4 Location: chest Pain Consistency: + other (worsening) Maximum Pain Intensity: 4 Quality: + constant Relieved By: + none Exacerbated By: + none Associated symptoms: no cough, no fever/chills, no loss of appetite and no nausea/vomiting The patient is a 89 year-old white female w/ PMHx HTN, glaucoma, emphysema, hyperlipidemia, hx of hysterectomy, hx of cholecystectomy, hx of partial colectomy, hx of neck surgery, who presents to the ED w/ CC of constant and worsening chest pain beginning 4 hours ago. The patient states her pain moves to her left shoulder and back. She states her heart rate and BP has been fluctuating for the past 3 months. She notes she was at [facility] recently and had her medication changed. The patient states nothing makes her chest pain better or worse. The patient denies having cough, fever, chills, nausea, vomiting, antibiotic use, recent travel, blood clots, and history of stents or bypass. The patient's daughter states the patient's appetite has been good. The patient states she took her morning medications. Home Medications Home Medications Medication Instructions Recorded Confirmed Type Combivent Respimat 1 puff INHALATION QID 10/28/18 05/17/19 History Saccharomyces boulardii 250 mg PO BID 10/28/18 05/17/19 History albuterol sulfate [Ventolin HFA] 2 puff INHALATION Q6H PRN 10/28/18 05/17/19 History cholecalciferol (vitamin D3) 2,000 unit PO QAM 10/28/18 05/17/19 History [Vitamin D3] prednisolone acetate 1 drp OPL HS 10/28/18 05/17/19 History amlodipine 5 mg PO DAILY 05/17/19 05/17/19 History isosorbide dinitrate 5 mg PO BID 05/17/19 05/17/19 History metoprolol tartrate 12.5 mg PO TID 05/17/19 05/17/19 History valsartan 80 mg PO DAILY 05/17/19 05/17/19 History warfarin 5 mg PO DIRECTED 05/17/19 05/17/19 History Allergies Allergy/AdvReac Type Severity Reaction Status Date / Time codeine Allergy Intermediate GI SYMPTOMS Unverified 05/17/19 12:26 Iodinated Contrast Media Allergy Intermediate GI SYMPTOMS Unverified 05/17/19 12:26 acetaminophen Allergy Mild AGITATION Unverified 05/17/19 12:26 polyethylene glycol 3350 Allergy Hives Unverified 05/17/19 12:26 [From Miralax] hydrocodone [From Vicodin] AdvReac Intermediate Shakiness Unverified 05/17/19 12:26 Past Med/Surg History Medical History 1st degree AV block Emphysema of lung (Chronic) Glaucoma (Chronic) Heart murmur History of atrial flutter HTN (hypertension) (Chronic) HTN (hypertension) Hyperlipidemia Lumbar degenerative disc disease (Chronic) Mitral regurgitation Paroxysmal atrial fibrillation Pre-diabetes (Chronic) Surgical History 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" H/O neck surgery (Resolved) "cervical laminectomy Dr Suleiman Bean 2010" and revision in 2018 History of section (Resolved) "x4" History of cholecystectomy (Resolved) History of hysterectomy (Resolved) History of keratoplasty (Chronic) History of partial colectomy (Resolved) "diverticulitis" Family History Mother Diabetes Stroke Sister Diabetes Other Family history non-contributory Social History Preferred Language: Latvian Communication Ability: Effective 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 and A total of 10 systems reviewed and were otherwise negative Physical Exam Vital Signs Vital Signs - 24 hr 05/17/19 11:17 05/17/19 12:23 05/17/19 14:00 Temperature 36.6 C Temperature Source Oral Pulse Rate 68 Pulse Rate [Left] 86 82 Pulse Rhythm [Left] Regular Respiratory Rate 20 16 17 Respiratory Effort / Characteristics Non-Labored Non-Labored Spontaneous Non-Labored Spontaneous Respiratory Depth Normal Normal Normal Respiratory Pattern Regular Blood Pressure 136/71 Blood Pressure [Left Arm] 120/88 122/82 Blood Pressure Mean 92 Blood Pressure Mean [Left Arm] 98 95 Blood Pressure Position Sitting Blood Pressure Position [Left Arm] Lying Pulse Oximetry 92 95 92 Oxygen Delivery Method Room Air Room Air Room Air Sepsis Recent Fever Within 48 Hours No Sepsis Action Taken by Nursing No Action Required GENERAL: Well appearing, well nourished, NAD, non-toxic. EYE EXAM: Normal conjunctiva. PERRL, no anisocoria and EOM's grossly intact w/o pain. OROPHARYNX: Moist mucus membranes. Grossly normal dentition. NECK: Supple, no nuchal rigidity, no adenopathy, non-tender. no signs of menin gismus. LUNGS: Clear to auscultation. Normal chest wall mechanics. HEART: NSR, no MRG. ABDOMEN: Abdomen soft, non-tender, normo-active bowel sounds, no masses, no rebound or guarding. BACK: No CVA TTP. SKIN: No rashes and no bruising. UPPER EXTREMITIES: Upper extremities are grossly normal. Equal and symmetric radial pulses. LOWER EXTREMITIES: No pitting edema. No calf pain. Equal and symmetric DP pulses. NEURO EXAM: A&O x3, cranial nerves II-XII grossly intact, normal speech, moves all 4 extremities on command w/o issue. Course Course 1149: The patient was evaluated in room C9, and a complete history and physical examination were performed. 1207: I am trying to obtain records from [facility]. 1235: After discussion with the patient's family, the patient gets anxious and does not have an allergic reaction to IV dye. 1310: I spoke with Dr. Jamison - Cardiology. He states he will look at the EKG. 1321: I spoke with Dr. Jamison. He states it could be a third degree block. Patient will be seen as inpatient. 1333: The patient came back from [place] and started having dry heaves. I am giving the patient Zofran. 1347: I updated the patient on the treatment plan. She agrees with the plan. 1352: I discussed the patient's case with Nika Rogers PA-C. [facility] the [facility] for further management. Administered Medications Acetaminophen (Tylenol) 650 mg PO Q4H PRN PRN Reason: Pain or Fever Stop: 06/16/19 15:58 Last Admin: 05/17/19 16:21 Dose: 650 mg Documented by: [id number] Isosorbide Dinitrate (Isordil) 5 mg PO BID@0700,1200 DAVID Stop: 06/16/19 16:29 Last Admin: 05/17/19 16:55 Dose: 5 mg Documented by: [id number] Discontinued Medications Sodium Chloride (Nss 1000ml) 500 mls @ 999 mls/hr IV .Q31M ONE Stop: 05/17/19 12:32 Last Infusion: 05/17/19 12:56 Dose: 0 mls/hr Documented by: [id number] Admin: 05/17/19 12:21 Dose: 999 mls/hr Documented by: [id number] Lorazepam (Ativan) 0.5 mg in 1 mls @ 1 mls/min IV NOW STA Stop: 05/17/19 12:36 Last Admin: 05/17/19 12:42 Dose: 1 mls/min Documented by: [id number] Ioversol (Optiray 320 125ml) 119 ml IV ONCE PRN PRN Reason: Interaction Checking Stop: 05/21/19 13:19 Last Admin: 05/17/19 13:21 Dose: 119 ml Documented by: [id number] Nitroglycerin (Nitrostat) 0.4 mg SL NOW STA Stop: 05/17/19 12:03 Last Admin: 05/17/19 12:21 Dose: 0.4 mg Documented by: [id number] Ondansetron HCl (Zofran) Confirm Administered Dose 4 mg .ROUTE .STK-MED ONE Stop: 05/17/19 13:34 Last Admin: 05/17/19 13:34 Dose: 4 mg Documented by: [id number] Ondansetron HCl (Zofran) 4 mg IV NOW STA Stop: 05/17/19 13:34 Last Admin: 05/17/19 13:35 Dose: Not Given Documented by: [id number] Medical Decision Making Differential Diagnosis Differential diagnoses includes but is not limited to acute coronary syndrome, myocardial infarction, pericarditis, pulmonary embolus, aortic dissection, pneumonia, pneumothorax, musculoskeletal, shingles, esophageal. Medical Records Attestation: I reviewed the patient's medical records. The patient was admitted and discharged in October 2018. She had an ECHO with /MR/AR, EF of 60%. She was started on Coumadin for history of atrial flutter. She was started on Diovan, metoprolol, and amlodipine at [facility]. Home Medications Current Medication List: was personally reviewed by me Laboratory Data Attestation: I reviewed the patient's lab results. Result diagrams: 05/17/19 11:30 05/17/19 11:30 Lab Results 05/17/19 05/17/19 05/17/19 Range/Units 11:30 11:30 11:30 WBC 5.81 (4.8-10.8) K/uL RBC 4.77 (4.2-5.4) M/uL Hgb 15.2 (12.0-16.0) g/dL Hct 44.1 (37-47) % MCV 92.5 (80-100) fL MCH 31.9 (25-34) pg MCHC 34.5 (32-36) g/dL RDW Std Deviation 42.6 (36.4-46.3) fL RDW Coeff of Rahul 12.6 (11.5-14.5) % Plt Count 202 (130-400) K/uL MPV 9.8 (7.4-10.4) fL Immature Gran % (Auto) 0.2 % Neut % (Auto) 50.4 % Lymph % (Auto) 36.0 % [place] % (Auto) 9.3 % Eos % (Auto) 3.6 % Baso % (Auto) 0.5 % Immature Gran # (Auto) 0.01 (0.00-0.02) K/uL Neut # (Auto) 2.93 (1.4-6.5) K/uL Lymph # (Auto) 2.09 (1.2-3.4) K/uL [place] # (Auto) 0.54 (0.11-0.59) K/uL Eos # (Auto) 0.21 (0-0.5) K/uL Baso # (Auto) 0.03 (0-0.2) K/uL PT 22.3 H (9.0-12.0) Seconds INR 2.2 H (0.9-1.1) APTT 35.0 H (21.0-31.0) Seconds PTT Ratio 1.3 Sodium 137 (136-145) mmol/L Potassium 3.9 (3.5-5.1) mmol/L Chloride 104 (98-107) mmol/L Carbon Dioxide 30 (21-32) mmol/L Anion Gap 3.0 (3-11) BUN 16 (7-18) mg/dl Creatinine 0.92 (0.6-1.2) mg/dl Est Cr Clr Drug Dosing Not Reportable Est GFR ( Amer) 64.4 Est GFR (Non-Af Amer) 55.6 BUN/Creatinine Ratio 17.1 (10-20) Glucose 130 H (70-99) mg/dl Calcium 9.9 (8.5-10.1) mg/dl Magnesium (1.8-2.4) mg/dl Total Bilirubin 0.4 (0.2-1) mg/dl AST 27 (15-37) U/L ALT 24 (12-78) U/L Alkaline Phosphatase 68 (45-117) U/L Troponin I < 0.015 (0-0.045) ng/ml Total Protein 7.6 (6.4-8.2) gm/dl Albumin 3.7 (3.4-5.0) gm/dl Globulin 3.9 (2.5-4.0) gm/dl Albumin/Globulin Ratio 0.9 (0.9-2) Lipase (73-393) U/L 05/17/19 05/17/19 Range/Units 11:30 11:30 WBC (4.8-10.8) K/uL RBC (4.2-5.4) M/uL Hgb (12.0-16.0) g/dL Hct (37-47) % MCV (80-100) fL MCH (25-34) pg MCHC (32-36) g/dL RDW Std Deviation (36.4-46.3) fL RDW Coeff of Rahul (11.5-14.5) % Plt Count (130-400) K/uL MPV (7.4-10.4) fL Immature Gran % (Auto) % Neut % (Auto) % Lymph % (Auto) % [place] % (Auto) % Eos % (Auto) % Baso % (Auto) % Immature Gran # (Auto) (0.00-0.02) K/uL Neut # (Auto) (1.4-6.5) K/uL Lymph # (Auto) (1.2-3.4) K/uL [place] # (Auto) (0.11-0.59) K/uL Eos # (Auto) (0-0.5) K/uL Baso # (Auto) (0-0.2) K/uL PT (9.0-12.0) Seconds INR (0.9-1.1) APTT (21.0-31.0) Seconds PTT Ratio Sodium (136-145) mmol/L Potassium (3.5-5.1) mmol/L Chloride (98-107) mmol/L Carbon Dioxide (21-32) mmol/L Anion Gap (3-11) BUN (7-18) mg/dl Creatinine (0.6-1.2) mg/dl Est Cr Clr Drug Dosing Est GFR ( Amer) Est GFR (Non-Af Amer) BUN/Creatinine Ratio (10-20) Glucose (70-99) mg/dl Calcium (8.5-10.1) mg/dl Magnesium 2.2 (1.8-2.4) mg/dl Total Bilirubin (0.2-1) mg/dl AST (15-37) U/L ALT (12-78) U/L Alkaline Phosphatase (45-117) U/L Troponin I (0-0.045) ng/ml Total Protein (6.4-8.2) gm/dl Albumin (3.4-5.0) gm/dl Globulin (2.5-4.0) gm/dl Albumin/Globulin Ratio (0.9-2) Lipase 212 (73-393) U/L Imaging Data Radiologist's Impression: Radiology results as stated below per my review and the radiologist's interpretation: XR chest 1V portable CLINICAL HISTORY: Chest Pain dyspnea COMPARISON STUDY: 10/28/2018 FINDINGS: Baseline emphysematous change is present. Mildly progressive basilar interstitial change is noted. Minimal upper lungs are clear. No well-defined focal infiltrative process. IMPRESSION: Mildly progressive bibasilar interstitial change. ACT 112: Negative or not required by law. The above report was generated using voice recognition software. It may contain grammatical, syntax or spelling errors. Electronically signed by: Eleuterio Pal M.D. 05/17/2019 12:[address] ANGIOGRAM OF THE CHEST CLINICAL HISTORY: Chest and back pain. Possible pulmonary embolism. COMPARISON STUDY: April 02, 2018 TECHNIQUE: Following the IV administration of 119 mL of Optiray-320, CT angiogram of the thorax was performed from the thoracic inlet to the lung bases utilizing the pulmonary embolus protocol. Images are reviewed in the axial, sagittal, and coronal planes. IV contrast was administered without complication. MIP imaging was performed. A dose lowering technique was utilized adhering to the principles of ALARA. CT DOSE: 504.51 mGycm FINDINGS: There is a multinodular thyroid gland. No pathologically enlarged axillary mediastinal or hilar lymph nodes were visualized. There was no evidence of thoracic aortic dilatation. There were no pulmonary artery filling defects to indicate acute pulmonary embolism. No pleural effusions are visualized. There is respiratory motion artifact. There is mosaic attenuation the lungs suggesting underlying air trapping. There is a stable 6 mm right apical pulmonary nodule IMPRESSION: 1. No evidence of acute pulmonary embolism 2. Stable mosaic attenuation the lungs consistent with air trapping 3. Stable solid 6 mm right apical pulmonary nodule ACT 112: Negative or not required by law. Electronically signed by: Abhinav Diaz M.D. 05/17/2019 1:34 PM ECG Data Attestation: I personally reviewed and interpreted this ECG as follows: Indication: + chest pain Rate (beats per minute): 85 Rhythm: + other (3rd degree heart block) ECG Intervals/blocks: + Normal QRS ECG [place]: + Normal ECG Findings: + Q waves (in lead 3) and + Other ( P waves are noted but do not appear to always correspond to a QRS. ) Comparison ECG Date: from (10/30/18) Change: the following changes noted (Rhythm has changed) Blood Pressure Blood Pressure Findings: Elevated blood pressure Blood Pressure Disposition: further management by hospitalist MARICRUZ Chester The patient is a 89 year-old white female w/ PMHx HTN, glaucoma, emphysema, hyperlipidemia, hx of hysterectomy, hx of cholecystectomy, hx of partial colectomy, hx of neck surgery, who presents to the ED w/ CC of constant and worsening chest pain beginning 4 hours ago. Continuous Cardiac Monitoring: An order was placed for continuous cardiac monitoring. The monitor shows a rate of 84 with a 3rd degree heart block rhythm. Patient was seen and evaluated the bedside. The patient did present with concern for chest pains. The patient has complaining of chest pain beginning yesterday today but is been more persistent. EKG undetermined rhythm but I do not see P waves to correspond with QRS and I believe the patient does have an element of third-degree heart block. This does appear changed compared to before the patient did have a very prolonged SD prior. The patient had a bl adder completed which was unremarkable. CT of the chest was obtained given the patient's pain with radiation to the back. Patient on exam does have palpable and equal pulses in all 4 extremities. Did try to obtain the outpatient records from [facility]. I did speak the on-call email marketing specialist who agreed that this may be 1/3 degree block but that the patient has good junctional rhythm. Troponin undetectable. The patient did have a CT angios of the chest which showed no evidence of any PE. No dilatation of the thoracic aorta. There is a 6 mm pulmonary nodule but this is stable compared to prior. The patient was having some nausea and vomiting after her contrasted scan. Patient was given Zofran. Patient family were updated on the findings. I did speak with hospitalist agreed to further evaluate treat the patient. Patient was admitted to the medicine service. Impression & Plan Third degree heart block, Pulmonary nodule, Atypical chest pain Discharge Plan Visit Data *Final* Discharge Date/Time: 05/17/19 15:13 Chief Complaint: Cardiac Assessment Stated Complaint: TIGHTNESS IN CHEST, BP IRRATIC ED Provider: Jan Moralez Discharge Problem: Third degree heart block, Pulmonary nodule, Atypical chest pain Patient Disposition: Admitted As Inpatient Discharge Instructions Interventions: ED Discharge Assessment Last Done: 05/17/19 15:13 The scribe's documentation has been prepared under my direction and personally reviewed by me in its entirety. I confirm that the note above accurately reflects all work, treatment, procedures, and medical decision making performed by me.
--- NOTE | 2019-05-17 17:51 | Cardiology Consultation ---
Date of Consultation May 17, 2019 Assessment & Plan (1) History of atrial flutter: (2) Third degree heart block: The patient is on telemetry which I will continuously review. I will order a resting echocardiogram. Ultimately I think she may need to be seen by the EP service. History of Present Illness Attending Physician: Morenita Jacinto MD History of Present Illness This is an elderly 89-year-old female admitted through the emergency department today with a history of dizziness and lightheadedness. Her health care has been hampered by fragmentation between [facility] and the [facility]. She was most recently seen at our [place] [facility] clinic by Eleuterio Maria. At that time she seemed to be doing well. Eleuterio had ordered a previous 2-week monitor for the patient for bradycardia. That study failed to show any significant arrhythmias. She maintained sinus rhythm and appropriate heart rates and had less than 1% burden of atrial fibrillation or flutter. The patient has been experiencing the above symptoms and the PA at [facility] recommended that she monitor her heart rate and blood pressure. She provided scraps of paper to me with blood pressures and heart rates stating that she has had some symptoms with high blood pressure as well as low pride pressure and also when her heart rate is slow. EKG obtained today appears to have sinus mechanism with possible complete heart block and escape junctional rhythm however, with her history of atrial flutter this could also be a slow atrial flutter with variable block. Past medical history: (I48.0) PAF (paroxysmal atrial fibrillation) ([facility]) (primary encounter diagnosis) (I48.92) Atrial flutter, unspecified type ([facility]) (I10) HTN, goal below 150/90 (I34.0) Nonrheumatic mitral valve regurgitation (I44.0) First degree AV block (E78.5) Dyslipidemia, goal LDL below 100 Allergies Allergy/AdvReac Type Severity Reaction Status Date / Time codeine Allergy Intermediate GI SYMPTOMS Unverified 05/17/19 12:26 Iodinated Contrast Media Allergy Intermediate GI SYMPTOMS Unverified 05/17/19 12:26 acetaminophen Allergy Mild AGITATION Unverified 05/17/19 12:26 polyethylene glycol 3350 Allergy Hives Unverified 05/17/19 12:26 [From Miralax] hydrocodone [From Vicodin] AdvReac Intermediate Shakiness Unverified 05/17/19 12:26 Home Medications Home Medications Medication Instructions Recorded Confirmed Type Combivent Respimat 1 puff INHALATION QID 10/28/18 05/17/19 History Saccharomyces boulardii 250 mg PO BID 10/28/18 05/17/19 History albuterol sulfate [Ventolin HFA] 2 puff INHALATION Q6H PRN 10/28/18 05/17/19 History cholecalciferol (vitamin D3) 2,000 unit PO QAM 10/28/18 05/17/19 History [Vitamin D3] prednisolone acetate 1 drp OPL HS 10/28/18 05/17/19 History amlodipine 5 mg PO DAILY 05/17/19 05/17/19 History isosorbide dinitrate 5 mg PO BID 05/17/19 05/17/19 History metoprolol tartrate 12.5 mg PO TID 05/17/19 05/17/19 History valsartan 80 mg PO DAILY 05/17/19 05/17/19 History warfarin 5 mg PO DIRECTED 05/17/19 05/17/19 History Patient History Medical History 1st degree AV block Emphysema of lung (Chronic) Glaucoma (Chronic) Heart murmur History of atrial flutter HTN (hypertension) (Chronic) HTN (hypertension) Hyperlipidemia Lumbar degenerative disc disease (Chronic) Mitral regurgitation Paroxysmal atrial fibrillation Pre-diabetes (Chronic) Surgical History 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" H/O neck surgery (Resolved) "cervical laminectomy Dr Suleiman Bean 2010" and revision in 2018 History of section (Resolved) "x4" History of cholecystectomy (Resolved) History of hysterectomy (Resolved) History of keratoplasty (Chronic) History of partial colectomy (Resolved) "diverticulitis" Family History Mother Diabetes Stroke Sister Diabetes Other Family history non-contributory Social History Preferred Language: Estonian Communication Ability: Effective Test Manager Required: No Beliefs That Will Affect Care: None marital status: / Current Living Situation: Alone Current Living Situation Comment: House current occupational status: retired Other Information That Helps Us Care for You: Yes Feels Safe at Home: Yes Safety Concerns: Feels Safe At This Time Smoking Status: Never smoker Second Hand Exposure: No ; Hx Alcohol Use: No Hx Substance Use: No Review of Systems Review of Systems: All systems reviewed & are unremarkable except as noted in HPI & below Nothing additional to add. Physical Exam Physical Exam: General: no acute distress and stated age Head: normocephalic, no masses, lesions, tenderness or abnormalities Eyes: conjunctiva are pink and non-injected, sclera clear Neck: supple, no adenopathy, no bruits, normal jugular venous pulse, no hepatojugular reflux Chest: normal shape and normal respiratory effort Lungs: clear to auscultation and percussion Cardiac Exam: - regular rate & rhythm, no murmurs gallops or rubs - normal S1, normal S2 Pulses: 2(+) throughout Abdomen: abdomen soft, non-tender, no abnormal masses and no hepatosplenomegaly Musculoskeletal: no gait disturbance, no joint inflammation, no deforming arthritis Extremities: no edema and no cyanosis Neuro: grossly normal exam Results & Data ([facility]) Vital Signs (Past 12 Hours) Vital Signs Temp Pulse Pulse Resp BP BP Pulse Ox 05/17/19 17:10 36.6 C 77 20 131/77 97 05/17/19 16:01 75 05/17/19 15:13 79 17 126/84 93 05/17/19 14:00 82 17 122/82 92 05/17/19 12:23 86 16 120/88 95 05/17/19 11:17 36.6 C 68 20 136/71 92 Laboratory Results Laboratory Results - last 24 hr 05/17/19 05/17/19 05/17/19 11:30 11:30 11:30 WBC 5.81 RBC 4.77 Hgb 15.2 Hct 44.1 MCV 92.5 MCH 31.9 MCHC 34.5 RDW Std Deviation 42.6 RDW Coeff of Rahul 12.6 Plt Count 202 MPV 9.8 Immature Gran % (Auto) 0.2 Neut % (Auto) 50.4 Lymph % (Auto) 36.0 [place] % (Auto) 9.3 Eos % (Auto) 3.6 Baso % (Auto) 0.5 Immature Gran # (Auto) 0.01 Neut # (Auto) 2.93 Lymph # (Auto) 2.09 [place] # (Auto) 0.54 Eos # (Auto) 0.21 Baso # (Auto) 0.03 PT 22.3 H INR 2.2 H APTT 35.0 H PTT Ratio 1.3 Sodium 137 Potassium 3.9 Chloride 104 Carbon Dioxide 30 Anion Gap 3.0 BUN 16 Creatinine 0.92 Est Cr Clr Drug Dosing Not Reportable Est GFR ( Amer) 64.4 Est GFR (Non-Af Amer) 55.6 BUN/Creatinine Ratio 17.1 Glucose 130 H Calcium 9.9 Magnesium Total Bilirubin 0.4 AST 27 ALT 24 Alkaline Phosphatase 68 Troponin I < 0.015 Total Protein 7.6 Albumin 3.7 Globulin 3.9 Albumin/Globulin Ratio 0.9 Lipase 05/17/19 05/17/19 05/17/19 11:30 11:30 16:55 WBC RBC Hgb Hct MCV MCH MCHC RDW Std Deviation RDW Coeff of Rahul Plt Count MPV Immature Gran % (Auto) Neut % (Auto) Lymph % (Auto) [place] % (Auto) Eos % (Auto) Baso % (Auto) Immature Gran # (Auto) Neut # (Auto) Lymph # (Auto) [place] # (Auto) Eos # (Auto) Baso # (Auto) PT INR APTT PTT Ratio Sodium Potassium Chloride Carbon Dioxide Anion Gap BUN Creatinine Est Cr Clr Drug Dosing Est GFR ( Amer) Est GFR (Non-Af Amer) BUN/Creatinine Ratio Glucose Calcium Magnesium 2.2 Total Bilirubin AST ALT Alkaline Phosphatase Troponin I < 0.015 Total Protein Albumin Globulin Albumin/Globulin Ratio Lipase 212 Medications Administered Current Inpatient Medications Acetaminophen (Tylenol) 650 mg PO Q4H PRN PRN Reason: Pain or Fever Stop: 06/16/19 15:58 Last Admin: 05/17/19 16:21 Dose: 650 mg Documented by: Albuterol (Ventolin Hfa) 2 puffs INH Q6H PRN PRN Reason: Shortness Of Breath Stop: 06/16/19 15:58 Amlodipine Besylate (Norvasc) 5 mg PO DAILY [facility] Stop: 06/17/19 08:59 Isosorbide Dinitrate (Isordil) 5 mg PO BID@0700,1200 [facility] Stop: 06/16/19 16:29 Last Admin: 05/17/19 16:55 Dose: 5 mg Documented by: Nitroglycerin (Nitrostat) 0.4 mg SL UD PRN PRN Reason: Chest Pain Stop: 06/16/19 15:58 Prednisolone Acetate (Pred Forte 1%) 1 drops OP HS [facility] Stop: 06/16/19 20:59 Valsartan (Diovan) 80 mg PO DAILY [facility] Stop: 06/17/19 08:59
[2019-05-17] MEDS: prednisoLONE acetate 1% OP SUSP 5 ML BTL OP SCH (21:03)
[2019-05-18 08:00] LABS: Hematocrit (blood only) 43.9 % (37-47); Hemoglobin 15.1 g/dL (12.0-16.0); Mean Corpuscular Hemoglobin 32.2 pg (25-34); Mean Corpuscular Hgb Conc 34.4 g/dL (32-36); Mean Corpuscular Volume 93.6 fL (80-100); Mean Platelet Volume 9.7 fL (7.4-10.4); Platelet Count 187 K/uL (130-400); RDW Coefficient of Variation 12.8 % (11.5-14.5); RDW Standard Deviation 43.9 fL (36.4-46.3); Red Blood Count 4.69 M/uL (4.2-5.4); White Blood Count 4.86 K/uL (4.8-10.8)
[2019-05-18] MEDS: VALSARTAN 80 MG TAB PO SCH (08:40)
[2019-05-18] MEDS: ISOSORBIDE DINITRATE 5 MG TAB PO SCH ×2 (08:41→12:31)
[2019-05-18] MEDS: AMLODIPINE BESYLATE 5 MG TAB PO SCH (08:41)
[2019-05-18 08:45] LABS: BUN Creatinine Ratio 20.4 (10-20); Calcium 9.7 mg/dl (8.5-10.1); Creatinine Clr Calc Pharmacy 40.9 ml/min; Est GFR (African American) 71.9; Est GFR (Non-African American) 62.1
--- NOTE | 2019-05-18 10:23 | Hospitalist Progress Note ---
Date of Service May 18, 2019 Assessment & Plan (1) Near syncope: Per previous hospitalist Dr. Arnoldo Nevarez's notes: Pt is 89 y/o F with PMH paroxysmal atrial fibrillation, atrial flutter on Coumadin, first-degree AV block, HTN, mitral regurgitation presented to ER with complaint of chest pain today and intermittent pre-syncope. She reports HR at home varying 40 and 140. Recently admitted to [facility] 05/06/2019- 05/10/2019 for near syncope and had Toprol changed to metoprolol tartrate Recent echo at [facility] interpretation: EF: 55-60%, grade 1 diastolic dysfunction, no significant valvular stenosis or regurgitation In ER received 1 nitro SL with relief of CP. EKG abnormal with possible intermittent complete heart block. Negative initial troponin. no significant electrolyte abnormality In ER vitals stable with HR 60's-80's, BP: 136/71, 120/88, R: 16-20, pulse ox 92-95% on RA and afebrile. Pt without dizziness, syncope, palpitations in ER. Reports chronic chest pressure however the CP had earlier has resolved CTA chest: No PE DDX: tachybrady syndrome, heart block --Hold metoprolol --Cardiology service on board, EP consulted for pacemaker placement Continue to monitor closely (2) Paroxysmal atrial fibrillation: On Coumadin INR: 2.0 -Hold Coumadin for pacemaker placement in the morning -Holding metoprolol as above (3) HTN (hypertension): -Continue amlodipine, valsartan with holding parameters DVT Prophylaxis -SCDs when INR <2.0 Conditional code - CPR, defibrillation with no intubation or mechanical ventilation as per discussion with pt and pt's daughter Follows with Dr Rojelio Richmond for routine care Admission and Anticipated Discharge Date Admission Date: May 17, 2019 Subjective Follow-up for near syncope Seen sitting up in bed, comfortable, not in distress No recurrence of dizziness or near syncope while admitted Denies chest pain, palpitations, shortness of breath No other symptoms Review of Systems Review of Systems: All systems reviewed & are unremarkable except as noted in HPI & below Physical Exam Physical Exam: General- oriented x 3, not in distress, speaks in sentences with no effort or accessory muscle use Head- atraumatic Eyes- PERRL, EOMI, anicteric ENT- oropharynx clear Neck- supple, no JVD, no adenopathy, no thyromegaly; carotids +2/2, no bruits appreciated Lungs- clear to auscultation bilaterally, no rales/wheezes Heart- normal rate, regular rhythm; positive grade 3/6 to 4/6 holosystolic murmur, no gallop, no rub appreciated Abdomen- normal bowel sounds, nondistended, soft, nontender, no masses or hepatosplenomegaly Extremities- no pretibial edema, no calf tenderness; peripheral pulses intact Neuro- alert, oriented x 3; CN 2-12 grossly intact; motor 5/5 bilaterally;sensation 100% on all extremities; no other gross focal neurologic deficits Skin- warm & dry Results & Data ([facility]) Vital Signs (Past 12 Hours) Vital Signs Temp Pulse Pulse Resp BP Pulse Ox 05/18/19 08:01 68 05/18/19 07:44 36.4 C L 75 18 127/77 94 05/18/19 04:47 36 C L 72 16 132/77 93 05/17/19 23:18 36.5 C 76 18 117/76 96 Laboratory Results Laboratory Results - last 24 hr 05/17/19 05/18/19 05/18/19 22:33 07:41 07:41 WBC 4.86 RBC 4.69 Hgb 15.1 Hct 43.9 MCV 93.6 MCH 32.2 MCHC 34.4 RDW Std Deviation 43.9 RDW Coeff of Rahul 12.8 Plt Count 187 MPV 9.7 PT 20.0 H INR 2.0 H Sodium Potassium Chloride Carbon Dioxide Anion Gap BUN Creatinine Est Cr Clr Drug Dosing Est GFR ( Amer) Est GFR (Non-Af Amer) BUN/Creatinine Ratio Glucose Calcium Troponin I < 0.015 05/18/19 07:41 WBC RBC Hgb Hct MCV MCH MCHC RDW Std Deviation RDW Coeff of Rahul Plt Count MPV PT INR Sodium 139 Potassium 4.0 Chloride 106 Carbon Dioxide 27 Anion Gap 5.0 BUN 17 Creatinine 0.84 Est Cr Clr Drug Dosing 40.9 Est GFR ( Amer) 71.9 Est GFR (Non-Af Amer) 62.1 BUN/Creatinine Ratio 20.4 H Glucose 103 H Calcium 9.7 Troponin I
--- NOTE | 2019-05-18 11:36 | Cardiology Progress Note ---
Date of Service May 18, 2019 Assessment & Plan (1) History of atrial flutter: (2) Third degree heart block: (3) Tachy-hal syndrome: (4) Current nonadherence to medical treatment: The EP service will see her today. Unfortunately, there is no documentation that would suggest the need for a pacemaker. On the telemetry since admission the patient has maintained a sinus rhythm with first-degree AV block and no other significant arrhythmias. I had a long discussion with the family and patient today. She seems to self medicate and states her problems started when she was switched from carvedilol to metoprolol. She has intermittently either reduce the dosage of the metoprolol or not taking it resulting in which she describes as a fast heart rate that makes her lightheaded and symptomatic alternating with taking the medication which she feels slows her heart rate down and makes her feel symptomatic. She did wear a 2-week monitor at the end of April for the above symptoms which failed to show any significant arrhythmias. The EP service will be seeing her today. I will await their suggestions. We will perform orthostatic blood pressures to make sure that the patient does not have autonomic dysfunction contributing to her symptoms. Subjective The patient had an uneventful night. She has maintained sinus rhythm with a first-degree AV block. Review of Systems Review of Systems: All systems reviewed & are unremarkable except as noted in HPI & below Nothing additional to add. Physical Exam Physical Exam: General: no acute distress and stated age Head: normocephalic, no masses, lesions, tenderness or abnormalities Eyes: conjunctiva are pink and non-injected, sclera clear Neck: supple, no adenopathy, no bruits, normal jugular venous pulse, no hepatojugular reflux Chest: normal shape and normal respiratory effort Lungs: clear to auscultation and percussion Cardiac Exam: - regular rate & rhythm, no murmurs gallops or rubs - normal S1, normal S2 Pulses: 2(+) throughout Abdomen: abdomen soft, non-tender, no abnormal masses and no hepatosplenomegaly Musculoskeletal: no gait disturbance, no joint inflammation, no deforming arthritis Extremities: no edema and no cyanosis Neuro: grossly normal exam Results & Data Vital Signs (Past 12 Hours) Vital Signs Temp Pulse Pulse Resp BP Pulse Ox 05/18/19 08:01 68 05/18/19 07:44 36.4 C L 75 18 127/77 94 03/11/20 04:47 36 C L 72 16 132/77 93 Laboratory Results Laboratory Results - last 24 hr 05/17/19 05/17/19 05/17/19 11:30 11:30 11:30 WBC 5.81 RBC 4.77 Hgb 15.2 Hct 44.1 MCV 92.5 MCH 31.9 MCHC 34.5 RDW Std Deviation 42.6 RDW Coeff of Rahul 12.6 Plt Count 202 MPV 9.8 Immature Gran % (Auto) 0.2 Neut % (Auto) 50.4 Lymph % (Auto) 36.0 [place] % (Auto) 9.3 Eos % (Auto) 3.6 Baso % (Auto) 0.5 Immature Gran # (Auto) 0.01 Neut # (Auto) 2.93 Lymph # (Auto) 2.09 [place] # (Auto) 0.54 Eos # (Auto) 0.21 Baso # (Auto) 0.03 PT 22.3 H INR 2.2 H APTT 35.0 H PTT Ratio 1.3 Sodium 137 Potassium 3.9 Chloride 104 Carbon Dioxide 30 Anion Gap 3.0 BUN 16 Creatinine 0.92 Est Cr Clr Drug Dosing Not Reportable Est GFR ( Amer) 64.4 Est GFR (Non-Af Amer) 55.6 BUN/Creatinine Ratio 17.1 Glucose 130 H Calcium 9.9 Magnesium Total Bilirubin 0.4 AST 27 ALT 24 Alkaline Phosphatase 68 Troponin I < 0.015 Total Protein 7.6 Albumin 3.7 Globulin 3.9 Albumin/Globulin Ratio 0.9 Lipase 05/17/19 05/17/19 05/17/19 11:30 11:30 16:55 WBC RBC Hgb Hct MCV MCH MCHC RDW Std Deviation RDW Coeff of Rahul Plt Count MPV Immature Gran % (Auto) Neut % (Auto) Lymph % (Auto) [place] % (Auto) Eos % (Auto) Baso % (Auto) Immature Gran # (Auto) Neut # (Auto) Lymph # (Auto) [place] # (Auto) Eos # (Auto) Baso # (Auto) PT INR APTT PTT Ratio Sodium Potassium Chloride Carbon Dioxide Anion Gap BUN Creatinine Est Cr Clr Drug Dosing Est GFR ( Amer) Est GFR (Non-Af Amer) BUN/Creatinine Ratio Glucose Calcium Magnesium 2.2 Total Bilirubin AST ALT Alkaline Phosphatase Troponin I < 0.015 Total Protein Albumin Globulin Albumin/Globulin Ratio Lipase 212 05/17/19 05/18/19 05/18/19 22:33 07:41 07:41 WBC 4.86 RBC 4.69 Hgb 15.1 Hct 43.9 MCV 93.6 MCH 32.2 MCHC 34.4 RDW Std Deviation 43.9 RDW Coeff of Rahul 12.8 Plt Count 187 MPV 9.7 Immature Gran % (Auto) Neut % (Auto) Lymph % (Auto) [place] % (Auto) Eos % (Auto) Baso % (Auto) Immature Gran # (Auto) Neut # (Auto) Lymph # (Auto) [place] # (Auto) Eos # (Auto) Baso # (Auto) PT 20.0 H INR 2.0 H APTT PTT Ratio Sodium Potassium Chloride Carbon Dioxide Anion Gap BUN Creatinine Est Cr Clr Drug Dosing Est GFR ( Amer) Est GFR (Non-Af Amer) BUN/Creatinine Ratio Glucose Calcium Magnesium Total Bilirubin AST ALT Alkaline Phosphatase Troponin I < 0.015 Total Protein Albumin Globulin Albumin/Globulin Ratio Lipase 05/18/19 07:41 WBC RBC Hgb Hct MCV MCH MCHC RDW Std Deviation RDW Coeff of Rahul Plt Count MPV Immature Gran % (Auto) Neut % (Auto) Lymph % (Auto) [place] % (Auto) Eos % (Auto) Baso % (Auto) Immature Gran # (Auto) Neut # (Auto) Lymph # (Auto) [place] # (Auto) Eos # (Auto) Baso # (Auto) PT INR APTT PTT Ratio Sodium 139 Potassium 4.0 Chloride 106 Carbon Dioxide 27 Anion Gap 5.0 BUN 17 Creatinine 0.84 Est Cr Clr Drug Dosing 40.9 Est GFR ( Amer) 71.9 Est GFR (Non-Af Amer) 62.1 BUN/Creatinine Ratio 20.4 H Glucose 103 H Calcium 9.7 Magnesium Total Bilirubin AST ALT Alkaline Phosphatase Troponin I Total Protein Albumin Globulin Albumin/Globulin Ratio Lipase Medications Administered Current Inpatient Medications Acetaminophen (Tylenol) 650 mg PO Q4H PRN PRN Reason: Pain or Fever Stop: 06/16/19 15:58 Last Admin: 05/17/19 16:21 Dose: 650 mg Documented by: Albuterol (Ventolin Hfa) 2 puffs INH Q6H PRN PRN Reason: Shortness Of Breath Stop: 06/16/19 15:58 Amlodipine Besylate (Norvasc) 5 mg PO DAILY [facility] Stop: 06/17/19 08:59 Last Admin: 05/18/19 08:41 Dose: 5 mg Documented by: Isosorbide Dinitrate (Isordil) 5 mg PO BID@0700,1200 [facility] Stop: 06/16/19 16:29 Last Admin: 05/18/19 08:41 Dose: 5 mg Documented by: Nitroglycerin (Nitrostat) 0.4 mg SL UD PRN PRN Reason: Chest Pain Stop: 06/16/19 15:58 Prednisolone Acetate (Pred Forte 1%) 1 drops OP HS [facility] Stop: 06/16/19 20:59 Last Admin: 05/17/19 21:03 Dose: 1 drops Documented by: Valsartan (Diovan) 80 mg PO DAILY [facility] Stop: 06/17/19 08:59 Last Admin: 05/18/19 08:40 Dose: 80 mg Documented by:
--- NOTE | 2019-05-18 13:39 | Cardiology Consultation ---
Date of Consultation May 18, 2019 Assessment & Plan (1) Near syncope: She has had a history of near syncope which has resulted in her family requiring to be present due to frequent episodes, her daughter currently resides in a motor home in the backyard of the patient's house. These episodes are intermittent, the family has documented them to be associated with heart rates in the 30s and 40s when she was on medications to control her tachycardia. With reduction in medications to control the tachycardia the events improved but she had symptoms of a racing heartbeat and with an increase in medications had recurrent symptoms. Attempts to record these episodes have been marginally s uccessful, they are intermittent and it has been hard to correlate symptoms with the arrhythmia. It seems that these symptoms are most likely due to hypotension probably for the most part due to bradycardia although perhaps not always. (2) Tachy-hal syndrome: She has well-defined tachybradycardia syndrome with history of atrial flutter and atrial fibrillation, more recently documented atrial tachycardia of some type with variable AV conduction and attempts to control the symptoms during these tachycardic episodes has resulted in bradycardia. We discussed various options which include continued monitoring to prove in a relationship between bradycardia and symptoms, however that would require treatment of her tachycardia with higher doses of medications and her and the family are fearful of this as she has had problems with it before. I am in agreement with that and I think the most reasonable option is to implant a pacemaker so we can support her heart rate and then adjust her medications. I discussed this at length with the patient and HER-2 daughters and they are in agreement. We will plan on this on May 19, 2019. (3) Second degree AV block, Mobitz type I: She has marked first-degree AV block as well as second-degree AV block when her atrial rate is faster consistent with AV conduction disease. Using higher doses of AV jak blocking medications to control her tachycardia is potentially risky as it may exacerbate this AV conduction disease. It may also progress. The pacemaker is probably the safest option. History of Present Illness Attending Physician: Edu Walton MD History of Present Illness This is an 89-year-old woman who has a history of tachybradycardia syndrome, AV block and dizziness and lightheadedness. Details are noted in Dr. Jamison's note. In brief, she has documented bradycardia and weakness with a home blood pressure monitor where her heart rate drops into the 30s and she feels as though she is going to collapse, based on her history this was on a beta-yasmeen which was then reduced. She was on the beta-yasmeen due to tachycardia. She then had intermittent episodes of her heart racing, continued to have symptoms which sound like labile blood pressure as well, and periods of presyncope. She did have a Zeo patch monitor performed in April 2019 however this was for 14 days, she did not have severe symptoms and her beta-yasmeen had been reduced and she did not have any bradycardia. She presents now with recurrent symptoms and on arrival was noted to be in a supraventricular tachycardia with variable AV conduction, the atrial rate was about 125 bpm and appeared to be either sinus tachycardia or possibly a slow atrial flutter although that rate that seems unlikely. This rhythm terminated and she was in sinus rhythm with marked first-degree AV block. She therefore has had documented tachybradycardia syndrome, documented bradycardia on home blood pressure monitoring associated with symptoms and inability to tolerate medications to control the tachycardia. Allergies Allergy/AdvReac Type Severity Reaction Status Date / Time codeine Allergy Intermediate GI SYMPTOMS Unverified 05/17/19 12:26 Iodinated Contrast Media Allergy Intermediate GI SYMPTOMS Unverified 05/17/19 12:26 acetaminophen Allergy Mild AGITATION Unverified 05/17/19 12:26 polyethylene glycol 3350 Allergy Hives Unverified 05/17/19 12:26 [From Miralax] hydrocodone [From Vicodin] AdvReac Intermediate Shakiness Unverified 05/17/19 12:26 Home Medications Home Medications Medication Instructions Recorded Confirmed Type Combivent Respimat 1 puff INHALATION QID 10/28/18 05/17/19 History Saccharomyces boulardii 250 mg PO BID 10/28/18 05/17/19 History albuterol sulfate [Ventolin HFA] 2 puff INHALATION Q6H PRN 10/28/18 05/17/19 History cholecalciferol (vitamin D3) 2,000 unit PO QAM 10/28/18 05/17/19 History [Vitamin D3] prednisolone acetate 1 drp OPL HS 10/28/18 05/17/19 History amlodipine 5 mg PO DAILY 05/17/19 05/17/19 History isosorbide dinitrate 5 mg PO BID 05/17/19 05/17/19 History metoprolol tartrate 12.5 mg PO TID 05/17/19 05/17/19 History valsartan 80 mg PO DAILY 05/17/19 05/17/19 History warfarin 5 mg PO DIRECTED 05/17/19 05/17/19 History Patient History Medical History 1st degree AV block Emphysema of lung (Chronic) Glaucoma (Chronic) Heart murmur History of atrial flutter HTN (hypertension) (Chronic) HTN (hypertension) Hyperlipidemia Lumbar degenerative disc disease (Chronic) Mitral regurgitation Paroxysmal atrial fibrillation Pre-diabetes (Chronic) Surgical History 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" H/O neck surgery (Resolved) "cervical laminectomy Dr Suleiman Bean 2010" and revision in 2018 History of section (Resolved) "x4" History of cholecystectomy (Resolved) History of hysterectomy (Resolved) History of keratoplasty (Chronic) History of partial colectomy (Resolved) "diverticulitis" Family History Mother Diabetes Stroke Sister Diabetes Other Family history non-contributory Social History Preferred Language: [place] Communication Ability: Effective 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 HEENT: Unremarkable Neck: No jugular venous distention, carotid pulses are normal and equal bilaterally without bruits. Pulmonary: Clear to auscultation bilaterally. Cardiac: Regular rhythm with no murmur, gallop or rub. Abdomen: Soft, nontender with normal bowel sounds. Extremities: No edema. Distal pulses intact. Neurologic: No focal findings. Gait is steady. Skin: No rash, ecchymoses or petechiae. Results & Data ([facility]) Vital Signs (Past 12 Hours) Vital Signs Temp Pulse Pulse Resp BP Pulse Ox 05/18/19 12:07 36.6 C 82 18 129/84 92 05/18/19 08:01 68 05/18/19 07:44 36.4 C L 75 18 127/77 94 05/18/19 04:47 36 C L 72 16 132/77 93 Laboratory Results Cardiac Enzymes 05/17/19 05/17/19 Range/Units 16:55 22:33 Troponin I < 0.015 < 0.015 (0-0.045) ng/ml Coagulation 05/18/19 Range/Units 07:41 PT 20.0 H (9.0-12.0) Seconds CBC 05/18/19 Range/Units 07:41 WBC 4.86 (4.8-10.8) K/uL RBC 4.69 (4.2-5.4) M/uL Hgb 15.1 (12.0-16.0) g/dL Hct 43.9 (37-47) % Plt Count 187 (130-400) K/uL Comprehensive Metabolic Panel 05/18/19 Range/Units 07:41 Sodium 139 (136-145) mmol/L Potassium 4.0 (3.5-5.1) mmol/L Chloride 106 (98-107) mmol/L Carbon Dioxide 27 (21-32) mmol/L BUN 17 (7-18) mg/dl Creatinine 0.84 (0.6-1.2) mg/dl Glucose 103 H (70-99) mg/dl Calcium 9.7 (8.5-10.1) mg/dl Intake and Output 05/17/19 05/18/19 05/18/19 22:59 06:59 14:59 Intake Total 475 / 975 Output Total Balance 474 / 974 Intake: Oral 475 / 475 Output: # Bowel Movements Other: Other Intake Source NPO # Unmeasured Voids 1 Weight 72.9 kg 71.8 kg Diagnostic Findings An electrocardiogram May 17, 2019 shows an atrial rhythm at around 125 bpm with variable AV conduction and a ventricular response of 85 bpm. An electrocardiogram from May 18, 2019 shows sinus rhythm at 66 bpm with marked first-degree AV block and a VA interval of 360 ms. Telemetry: Initially an atrial arrhythmia with variable AV conduction, subsequently sinus rhythm and sinus bradycardia with first-degree AV block An echocardiogram done October 29, 2018 shows normal left ventricular function with ejection fraction of 60 to 65% and mild left atrial dilatation and moderate concentric left ventricular hypertrophy. PG Care Time/CCT Total # of Minutes Spent Total Time Spent with Patient: Total time spent is greater than 50% in coordination of care (as documented) at patient's floor/unit and/or counseling patient: Coding Level of Care Code 06367 OBS Care - Level 3 Diagnoses Near syncope R55 Tachy-hal syndrome I49.5 Second degree AV block, Mobitz type I I44.1
--- NOTE | 2019-05-18 16:34 | Electrocardiogram Report ---
Test Reason : Blood Pressure : / mmHG Vent. Rate : 066 BPM Atrial Rate : 066 BPM P-R Int : 358 ms QRS Dur : 098 ms QT Int : 434 ms P-R-T Axes : 075 012 019 degrees QTc Int : 454 ms Sinus rhythm with 1st degree A-V block Inferior infarct , age undetermined Possible Anterior infarct (cited on or before 02-APR-2018) Abnormal ECG When compared with ECG of 17-MAY-2019 11:26, Atrial tachycardia is no longer Present Confirmed by Zbigniew Bhagat ([id number]) on 05/18/2019 4:33:41 PM Referred By: REFERRED SELF Confirmed By:Zbigniew Bhagat
[2019-05-18] MEDS: prednisoLONE acetate 1% OP SUSP 5 ML BTL OP SCH (20:48)
[2019-05-18] MEDS: ACETAMINOPHEN 325 MG TAB PO PRN (21:30)
[2019-05-19] MEDS: LACTATED RINGER'S 1,000 ML IV SCH ×2 (05:50→23:38)
[2019-05-19] MEDS ORDERED: CEFAZOLIN 2000MG 2,000 MG/15 ML SYR IV SCH (06:00)
[2019-05-19] MEDS ORDERED: CEFAZOLIN 250 MG/ML 1 GM VIAL IV SCH (06:00)
[2019-05-19] MEDS: ISOSORBIDE DINITRATE 5 MG TAB PO SCH ×2 (07:55→13:43)
[2019-05-19] MEDS: AMLODIPINE BESYLATE 5 MG TAB PO SCH (07:55)
[2019-05-19] MEDS: VALSARTAN 80 MG TAB PO SCH (07:56)
[2019-05-19 08:39] LABS: INR 1.5 (0.9-1.1); Prothrombin Time 15.1 Seconds (9.0-12.0)
[2019-05-19] MEDS ORDERED: BACITRACIN INJ 50,000 UNIT VIAL ONE (10:19)
[2019-05-19] MEDS ORDERED: MIDAZOLAM HCL 5 MG/ML 1 ML VIAL ONE (10:19)
[2019-05-19] MEDS ORDERED: CEFAZOLIN 250 MG/ML 1 GM VIAL ONE (10:19)
[2019-05-19] MEDS ORDERED: fentaNYL citrate 100 MCG/2 ML VIAL ONE (10:19)
[2019-05-19] MEDS ORDERED: LIDOCAINE HCL 1% 20 ML VIAL ONE (10:19)
[2019-05-19] MEDS ORDERED: BACITRACIN OINT 0.9 GM PKT ONE (10:20)
--- NOTE | 2019-05-19 11:08 | Pre Anesthesia Assessment ---
Date of Service May 19, 2019 Pre Sedation Assessment Vital Signs Temp Pulse Pulse Pulse Resp BP Pulse Ox 05/19/19 10:07 75 16 139/90 94 05/19/19 07:50 71 05/19/19 07:35 36.5 C 68 18 145/80 H 92 05/19/19 07:02 70 20 156/82 H 95 05/19/19 03:16 36.3 C L 66 18 128/74 92 05/19/19 00:00 85 05/18/19 23:12 36.4 C L 72 16 107/69 91 05/18/19 19:42 36.5 C 71 16 117/68 93 05/18/19 16:00 81 05/18/19 15:41 36.6 C 20 92 05/18/19 12:07 36.6 C 82 18 129/84 92 Cardiovascular RRR, no murmur, no edema Respiratory normal respiratory effort, lungs clear to auscultation Pre-Sedation Airway Assessment Smoking Status: Never smoker Hx Sleep Apnea: No Short, Thick Neck: Yes Thyromental Distance: > or= 3.5 Finger Breadths Oral Cavity: + Dentures Mallampati Class: III ASA: ASA3 NPO Status Date of Last Intake of Fluids: 05/18/19 Time of Last Intake of Fluids: 22:00 Date of Last Intake of Solid Food: 05/18/19 Time of Last Intake of Solid Foods: 22:00 Procedure Planning Contraindications for Sedation: none Current Medications Reviewed: Yes Notes The planned sedation has been discussed with the patient. Informed Consent was obtained. I have identified the patient, determined the appropriateness of sedation and have assessed the patient immediately prior to the procedure. All medicine(s) and interventions are by my order.
--- NOTE | 2019-05-19 11:10 | History & Physical Bridge Note ---
Date of Service May 19, 2019 History & Physical Bridge Note I have examined the patient, reviewed the History & Physical and in the interval since the performance of the History & Physical I have noted the following changes of clinical significance: no changes noted. I reviewed the indications, procedure, risks and alternatives with her and her family and they understand and she agrees to proceed. Consent obtained. I reviewed sedation as well and she agrees, consent obtained.
[2019-05-19] MEDS ORDERED: raNITIdine HCl 25 MG/ML VIAL IV ONE (11:27)
[2019-05-19] MEDS ORDERED: methylPREDNISolone 125 MG/2 ML VIAL ONE (11:27)
[2019-05-19] MEDS ORDERED: DiphenhydrAMINE HCL 50 MG/ML VIAL ONE (11:27)
[2019-05-19] MEDS ORDERED: KETOROLAC TROMETHAMINE 10 MG TABLET PO PRN (12:27)
[2019-05-19] MEDS ORDERED: ACETAMINOPHEN 325 MG TAB PO PRN (12:27)
--- NOTE | 2019-05-19 12:27 | Electrophysiology Report ---
Date of Service May 19, 2019 Electrophysiology Procedure Electrophysiology Procedure Report Preoperative diagnosis: Tachybradycardia syndrome Postoperative diagnosis: Same Procedure: 1. Left subclavian venogram 2. Dual-chamber pacemaker implantation Surgeon: Zbigniew Bhagat MD Estimated blood loss: 20 cc Complications: None Disposition: Bilingual Medical Receptionist recovery Procedure details: After obtaining informed consent for the procedure, the patient was brought to the laboratory and prepped and draped in the standard sterile manner. The left prepectoral region was anesthetized with 1% lidocaine local anesthetic and left axillary venipuncture was attempted but was not successful, we were hesitant to use dye due to a prior possible dye reaction however after several attempts at venipuncture we did pretreat her for the use of x-ray dye. Dye was injected the left arm IV site to opacify the left subclavian vein. The subclavian vein was identified and found to be free of obstruction. There was no evidence of a dye reaction throughout the procedure. Venipuncture was then successfully performed by percutaneous technique and a guidewire placed through the left subclavian vein into the superior vena cava. The area was further infiltrated with 1% lidocaine local anesthetic and a 5 cm incision was made parallel to the left clavicle and 2 cm below it and carried down to the anterior pectoralis fascia. A pacemaker pocket was formed by blunt dissection anterior to the pectoralis fascia and a bacitracin-soaked sponge (50,000 units in 50 cc normal saline solution) was placed in the pocket. An 8 [place] Medtronic lead introducer was placed over the guidewire into the left subclavian vein, the dilator and guidewire were removed and a bipolar active fixation steroid tipped ventricular lead was advanced through the introducer into the superior vena cava. A guidewire was placed through the introducer and the introducer was stripped from the lead and guidewire. Another 8 [place] Medtronic lead introducer was placed over the guidewire into the left subclavian vein, the dilator and guidewire were removed and a bipolar active fixation steroid tipped atrial lead was advanced through the introducer into the superior vena cava. A guidewire was placed back through the introducer and the introducer was stripped from the lead and guidewire. Using a curved stylette the ventricular lead was advanced through the right ventricular outflow tract into the pulmonary artery and then using a straight stylette was positioned in the right ventricular apex. The screw was extended fixing the lead in position. Pacing and sensing thresholds were evaluated in bipolar configuration and are recorded on the implant data sheet. Using a curved stylette the atrial lead was positioned in the region of the atrial appendage and the screw extended fixing the lead in position. Pacing and sensing thresholds were evaluated in bipolar configuration and are recorded on the implant data sheet. Once the leads were in position they were attached to the anterior pectoralis fascia using 2 sutures of 2-0 silk around each lead collar. The bacitracin- soaked sponge was removed from the pocket, hemostasis was obtained, the pacemaker was attached to the leads and placed in the pocket with the leads coiled beneath it. The incision was closed with a running double subcutaneous closure of 3-0 Vicryl absorbable suture, followed by running subcuticular skin closure of 4-0 Vicryl absorbable suture. Bacitracin ointment was placed on the incision and a pressure dressing applied. [facility] Electrophysiology codes Indication for Procedure (1) Tachy-hal syndrome: (2) Second degree AV block, Mobitz type I: Pacing Procedure 1: Pacin Insert/Replace Pacer A & V Miscellaneous Procedures Procedure 1: EP Miscellaneous: 05344 Contrast injection for venography Procedure 2: EP Miscellaneous: 44005-49 Vengraphy, extremity PG Moderate Sedation Codes Moderate Sedation Codes Procedure 1: Sedation/Anesthesia: 21459 Mod Sedation by the same physician;Init15 Min Child Age 5 & Up Procedure 2: Sedation/Anesthesia: 25827 Mod Sedation by the same physician; Ea [id number] Minutes
--- NOTE | 2019-05-19 12:31 | Post Anesthesia Assessment ---
Date of Service May 19, 2019 Post Sedation Assessment Vital Signs Temp Pulse Pulse Pulse Resp BP Pulse Ox 05/19/19 12:20 70 16 146/70 H 96 05/19/19 10:07 75 16 139/90 94 05/19/19 07:50 71 05/19/19 07:35 36.5 C 68 18 145/80 H 92 05/19/19 07:02 70 20 156/82 H 95 05/19/19 03:16 36.3 C L 66 18 128/74 92 05/19/19 00:00 85 05/18/19 23:12 36.4 C L 72 16 107/69 91 05/18/19 19:42 36.5 C 71 16 117/68 93 05/18/19 16:00 81 05/18/19 15:41 36.6 C 20 92 Recovery Score Activity: Moves 4 extremities Respiration: Deep Breath/Cough Circulation: +/-20% PreAnes Value Consciousness: Fully Awake Oxygen Saturation: > 92% On Room Air Post Anesthesia Score: 10 Discharge Sedation Level of Care: Fast Track Phase II Post Sedation Plan On clinical assessment, the patient appears to have tolerated the sedation without complications. Patient is recovering as anticipated. Patient will continue to be monitored by nursing and may be discharged when sedation discharge criteria are met per below protocol. Upon Completions of procedure up to 15 minutes continue every 5 minute vital signs and the P.A.R. score; then discharge to a Phase I or Fast Track to Phase II per the following guidelines: * Discharge Patient to appropriate Phase II area if PAR is 8 or greater or return to pre- procedure baseline. The post - procedure orders will be as directed. * If PAR score is less than 8 or not return to pre-procedure baseline then patient will follow Phase I monitoring till PAR is reached for Phase II. The Phase I may be done in procedure room or may call to secure a Phase I area. * If naloxone or flumazenil are used for reversal, hold in Phase I for continued monitoring from when last reversal dose was given for a minimum of 60 minutes or longer pending the nurse and/or physician discretion of patient condition before discharge to Phase II. Please call the Sedation Physician to re-evaluate and complete post-note for discharge to Phase II area. Do NOT discharge from procedure sedation or Phase 1 until post- sedation evaluation note is complete by procedure /sedation MD Sedation Discharge Instructions to be given to the patient at discharge to home.
--- NOTE | 2019-05-19 14:34 | Cardiology Progress Note ---
Date of Service May 19, 2019 Assessment & Plan (1) History of atrial flutter: (2) Third degree heart block: (3) Tachy-hal syndrome: (4) Current nonadherence to medical treatment: The patient received a pacemaker today. She is resting comfortably. I will restart her metoprolol tonight. Subjective The patient is resting comfortably post pacemaker implant. Review of Systems Review of Systems: Unobtainable due to cognitive status Physical Exam Physical Exam: General: no acute distress and stated age Head: normocephalic, no masses, lesions, tenderness or abnormalities Eyes: conjunctiva are pink and non-injected, sclera clear Neck: supple, no adenopathy, no bruits, normal jugular venous pulse, no hepatojugular reflux Chest: normal shape and normal respiratory effort Lungs: clear to auscultation and percussion Cardiac Exam: - regular rate & rhythm, no murmurs gallops or rubs - normal S1, normal S2 Pulses: 2(+) throughout Abdomen: abdomen soft, non-tender, no abnormal masses and no hepatosplenomegaly Musculoskeletal: no gait disturbance, no joint inflammation, no deforming arthritis Extremities: no edema and no cyanosis Neuro: grossly normal exam Results & Data Vital Signs (Past 12 Hours) Vital Signs Temp Pulse Pulse Pulse Resp BP Pulse Ox 05/19/19 13:21 94 H 20 237/75 H 91 05/19/19 12:50 36.5 C 74 18 138/76 92 05/19/19 12:35 68 16 122/71 97 05/19/19 12:20 70 16 146/70 H 96 05/19/19 10:07 75 16 139/90 94 05/19/19 07:50 71 05/19/19 07:35 36.5 C 68 18 145/80 H 92 05/19/19 07:02 70 20 156/82 H 95 05/19/19 03:16 36.3 C L 66 18 128/74 92 Laboratory Results Laboratory Results - last 24 hr 05/19/19 08:20 PT 15.1 H INR 1.5 H Medications Administered Current Inpatient Medications Acetaminophen (Tylenol) 650 mg PO Q4H PRN PRN Reason: Pain or Fever Stop: 06/16/19 15:58 Last Admin: 05/18/19 21:30 Dose: 650 mg Documented by: Acetaminophen (Tylenol) 650 mg PO Q4H PRN PRN Reason: Mild pain (rating 1,2,3) Stop: 06/18/19 12:26 Albuterol (Ventolin Hfa) 2 puffs INH Q6H PRN PRN Reason: Shortness Of Breath Stop: 06/16/19 15:58 Amlodipine Besylate (Norvasc) 5 mg PO DAILY [facility] Stop: 06/17/19 08:59 Last Admin: 05/19/19 07:55 Dose: 5 mg Documented by: Lactated Ringer's (Lr) 1,000 mls @ 15 mls/hr IV .Q24H [facility] Stop: 05/22/19 00:39 Last Admin: 05/19/19 05:50 Dose: 15 mls/hr Documented by: Cefazolin Sodium (Ancef 2000mg) 2,000 mg in 15 mls @ 3.75 mls/min IV PREOP [facility]; Protocol Stop: 05/19/19 18:00 Last Admin: 05/19/19 11:41 Dose: Not Given Documented by: Isosorbide Dinitrate (Isordil) 5 mg PO BID@0700,1200 [facility] Stop: 06/16/19 16:29 Last Admin: 05/19/19 13:43 Dose: 5 mg Documented by: Ketorolac Tromethamine (Toradol) 10 mg PO Q6H PRN PRN Reason: Pain (rating 4,5,6,7,8,9,10) Stop: 05/24/19 12:26 Metoprolol Tartrate (Lopressor) 12.5 mg PO BID [facility] Stop: 06/18/19 20:59 Nitroglycerin (Nitrostat) 0.4 mg SL UD PRN PRN Reason: Chest Pain Stop: 06/16/19 15:58 Prednisolone Acetate (Pred Forte 1%) 1 drops OP HS [facility] Stop: 06/16/19 20:59 Last Admin: 05/18/19 20:48 Dose: 1 drops Documented by: Valsartan (Diovan) 80 mg PO DAILY [facility] Stop: 06/17/19 08:59 Last Admin: 05/19/19 07:56 Dose: 80 mg Documented by:
--- NOTE | 2019-05-19 17:24 | Electrocardiogram Report ---
Test Reason : Blood Pressure : / mmHG Vent. Rate : 089 BPM Atrial Rate : 000 BPM P-R Int : 000 ms QRS Dur : 090 ms QT Int : 376 ms P-R-T Axes : 000 -19 058 degrees QTc Int : 457 ms Sinus rhythm with 1st degree A-V block Inferior infarct (cited on or before 28-OCT-2018) Possible Anterior infarct (cited on or before 02-APR-2018) Abnormal ECG When compared with ECG of 18-MAY-2019 06:37, No significant change Confirmed by Zbigniew Bhagat ([id number]) on 05/19/2019 5:24:11 PM Referred By: REFERRED SELF Confirmed By:Zbigniew Bhagat
--- NOTE | 2019-05-19 19:31 | Hospitalist Progress Note ---
Date of Service May 19, 2019 Assessment & Plan (1) Near syncope: Per previous hospitalist Dr. Arnoldo Nevarez's notes: Pt is 89 y/o F with PMH paroxysmal atrial fibrillation, atrial flutter on Coumadin, first-degree AV block, HTN, mitral regurgitation presented to ER with complaint of chest pain today and intermittent pre-syncope. She reports HR at home varying 40 and 140. Recently admitted to [facility] 05/06/2019- 05/10/2019 for near syncope and had Toprol changed to metoprolol tartrate Recent echo at [facility] interpretation: EF: 55-60%, grade 1 diastolic dysfunction, no significant valvular stenosis or regurgitation In ER received 1 nitro SL with relief of CP. EKG abnormal with possible intermittent complete heart block. Negative initial troponin. no significant electrolyte abnormality In ER vitals stable with HR 60's-80's, BP: 136/71, 120/88, R: 16-20, pulse ox 92-95% on RA and afebrile. Pt without dizziness, syncope, palpitations in ER. Reports chronic chest pressure however the CP had earlier has resolved CTA chest: No PE DDX: tachybrady syndrome, heart block Status post pacemaker placement 05/19/2011 Metoprolol to be resumed tonight Continue to monitor (2) Paroxysmal atrial fibrillation: On Coumadin INR: 1.5 -Coumadin held for pacemaker placement -Resuming metoprolol tonight (3) HTN (hypertension): -Continue amlodipine, valsartan with holding parameters DVT Prophylaxis SCDs, INR 1.5 Conditional code - CPR, defibrillation with no intubation or mechanical ventilation as per discussion with pt and pt's daughter Follows with Dr Rojelio Richmond for routine care Disposition Lives alone PT OT evaluation Admission and Anticipated Discharge Date Admission Date: May 17, 2019 Subjective Follow-up for presyncope, possible take tachybradycardia syndrome Seen status post pacemaker placed Resting in bed, comfortable, not in distress States she feels fine overall Pacemaker area feels slightly sore Denies chest pain, shortness of breath, dizziness, palpitations, nausea vomiting No other symptoms Review of Systems Review of Systems: All systems reviewed & are unremarkable except as noted in HPI & below Physical Exam Physical Exam: General- oriented x 3, not in distress, speaks in sentences with no effort or accessory muscle use Eyes- anicteric Neck- no JVD Lungs- clear breath sounds bilaterally, no rales/wheezes Heart- normal rate, regular rhythm; no murmurs Pacemaker site-dressing in place, no bleeding, no discharge, no surrounding erythema/hematoma/edema Abdomen- normal bowel sounds, nondistended, soft, nontender Extremities- no pretibial edema, no calf tenderness Neuro- alert, oriented x 3; no gross focal neurologic deficits Skin- warm & dry Results & Data ([facility]) Vital Signs (Past 12 Hours) Vital Signs Temp Pulse Pulse Pulse Resp BP BP 05/19/19 17:00 36.4 C L 94 H 111/66 05/19/19 16:00 36.4 C L 91 H 121/70 05/19/19 15:11 36.5 C 92 H 16 109/72 05/19/19 13:24 93 H 05/19/19 13:21 94 H 20 237/75 H 05/19/19 12:50 36.5 C 74 18 138/76 05/19/19 12:35 68 16 122/71 05/19/19 12:20 70 16 146/70 H 05/19/19 10:07 75 16 139/90 05/19/19 07:50 71 05/19/19 07:35 36.5 C 68 18 145/80 H Pulse Ox 05/19/19 17:00 05/19/19 16:00 05/19/19 15:11 91 05/19/19 13:24 05/19/19 13:21 91 05/19/19 12:50 92 05/19/19 12:35 97 05/19/19 12:20 96 05/19/19 10:07 94 05/19/19 07:50 05/19/19 07:35 92 Laboratory Results Laboratory Results - last 24 hr 05/19/19 08:20 PT 15.1 H INR 1.5 H
[2019-05-19] MEDS: METOPROLOL TARTRATE 25 MG TAB PO SCH (20:14)
[2019-05-19] MEDS: ACETAMINOPHEN 325 MG TAB PO PRN (20:14)
[2019-05-19] MEDS: prednisoLONE acetate 1% OP SUSP 5 ML BTL OP SCH (20:15)
[2019-05-20] MEDS: ISOSORBIDE DINITRATE 5 MG TAB PO SCH ×2 (05:58→13:20)
--- NOTE | 2019-05-20 06:53 | XRay Report ---
XR chest 2V PA/lateral HISTORY: 89 years-old Female EXACT TIME ORDERED Evaluate for pneumothorax and l status post placemen t of a left subclavian pacer COMPARISON: Chest radiograph and CTA chest 05/17/2019 TECHNIQUE: PA and lateral views of the chest FINDINGS: Cardiac silhouette is mildly enlarged. Asymmetric right hilar prominence is unchanged. Calcified plaq ue of the thoracic aortic arch. Hyperinflation with chronic interstitial coarsening. No pneumothorax, pleural effusion, airspace consolidation or overt pulmonary edema. Telemetry leads are coiled about the central chest. Left subclavian pacer has been placed with leads overlying the expected locations of the right atrium and right ventricle. No postprocedural pneumothorax identified. The lateral view is limited secondary to upper extremity positioning. Partially imaged cervical spine fusion hardware. IMPRESSION: Status post placement of a left subclavian pacer. No postprocedural pneumothorax. ACT 112: Negative or not required by law. The above report was generated using voice recognition software. It may contain grammatical, syntax o r spelling errors. Electronically signed by: Chapo Wiseman M.D. 05/20/2019 6:52 AM
[2019-05-20] MEDS: ACETAMINOPHEN 325 MG TAB PO PRN (08:31)
[2019-05-20] MEDS: METOPROLOL TARTRATE 25 MG TAB PO SCH (08:32)
[2019-05-20] MEDS: AMLODIPINE BESYLATE 5 MG TAB PO SCH (08:34)
[2019-05-20] MEDS: VALSARTAN 80 MG TAB PO SCH (08:34)
--- NOTE | 2019-05-20 08:45 | Cardiology Progress Note ---
Date of Service May 20, 2019 Assessment & Plan (1) Status post placement of cardiac pacemaker: She is doing well postop day #1, the device is working well, there are no evident complications and the site looks good. She should be stable for discharge today from my standpoint. Anticoagulation as desired at this point. Admission and Anticipated Discharge Date Admission Date: May 17, 2019 Subjective She is feeling well today, no incisional discomfort of significance. No cardiac complaints including chest discomfort. Physical Exam Physical Exam: The incision looks clean and dry without bleeding, there is no swelling or erythema. Minimal ecchymosis as expected. Results & Data ([facility]) Vital Signs (Past 12 Hours) Vital Signs Temp Pulse Resp BP Pulse Ox 05/20/19 07:56 36.8 C 66 16 124/76 95 05/20/19 03:25 36.5 C 87 16 117/73 93 05/19/19 23:06 36.4 C L 85 18 107/72 94 Diagnostic Findings Postop ECG: Appropriate pacemaker inhibition Telemetry: Sinus rhythm, sinus tachycardia, no significant pacing which is appropriate Chest x-ray: Good lead position, no pneumothorax Pacemaker evaluation: Excellent pacing and sensing characteristics PG Care Time/CCT Total # of Minutes Spent Total Time Spent with Patient: Total time spent is greater than 50% in coordination of care (as documented) at patient's floor/unit and/or counseling patient: Coding Level of Care Code 11796 Post Operative Follow-Up Diagnoses Status post placement of cardiac pacemaker Z95.0 CPT Codes Dual Lead Pacemaker System - 41423 ([id number])
--- NOTE | 2019-05-20 10:15 | Cardiology Progress Note ---
Date of Service May 20, 2019 Assessment & Plan (1) Status post placement of cardiac pacemaker: Appropriate function Incision dry. No significant pain. [facility] Device clinic to arrange 1 week wound and device check. Patient will be notified of this appointment. (2) History of atrial flutter: Resume Metoprolol 25 mg BID Resume coumadin Stable for discharge today. She has Hosp f/u appt already scheduled for 05/25 with Chante Maria PA-C Device check to be arranged. (3) Third degree heart block: (4) Tachy-hal syndrome: Supervising Physician Co-Signing Physician Notes I discussed the case with Macrina Rojas. I have reviewed the medical record and examined the patient. Her pacemaker site is clean and dry. Arrangements will be made for her to have follow-up through our device clinic and for a wound check. Subjective Patient feeling well. No significant incisional discomfort. Denies recent dizziness, syncope or near syncope. No sense of palpitations or tachypalpitations. No orthopnea, PND or edema Review of Systems Review of Systems: All systems reviewed & are unremarkable except as noted in HPI & below Physical Exam Constitutional: WD/WN, vitals as above well developed; no acute distress Respiratory: normal respiratory effort, lungs clear to auscultation Cardiovascular: RRR, no murmur, no edema Pacer incision - covered dressing, dry and intact Gastrointestinal (Abdomen): normal bowel sounds, soft, nontender, no hepatosplenomegaly Musculoskeletal: no cyanosis or clubbing, extremities motor strength 5/5 Neurologic: PERRL, EOMI, accommodation nl, no face palsy, no dysarthria Results & Data Vital Signs (Past 12 Hours) Vital Signs Temp Pulse Resp BP Pulse Ox 05/20/19 07:56 36.8 C 66 16 124/76 95 05/20/19 03:25 36.5 C 87 16 117/73 93 05/19/19 23:06 36.4 C L 85 18 107/72 94 Diagnostic Findings Telemetry reviewed: currently NSR with intermittent pacing. Dual chamber pacemaker interrogation with appropriate function Medications Administered Current Inpatient Medications Acetaminophen (Tylenol) 650 mg PO Q4H PRN PRN Reason: Pain or Fever Stop: 06/16/19 15:58 Last Admin: 05/20/19 08:31 Dose: 650 mg Documented by: Acetaminophen (Tylenol) 650 mg PO Q4H PRN PRN Reason: Mild pain (rating 1,2,3) Stop: 06/18/19 12:26 Albuterol (Ventolin Hfa) 2 puffs INH Q6H PRN PRN Reason: Shortness Of Breath Stop: 06/16/19 15:58 Amlodipine Besylate (Norvasc) 5 mg PO DAILY [facility] Stop: 06/17/19 08:59 Last Admin: 05/20/19 08:34 Dose: 5 mg Documented by: Lactated Ringer's (Lr) 1,000 mls @ 15 mls/hr IV .Q24H [facility] Stop: 05/22/19 00:39 Last Infusion: 05/19/19 23:38 Dose: Infused Documented by: Isosorbide Dinitrate (Isordil) 5 mg PO BID@0700,1200 [facility] Stop: 06/16/19 16:29 Last Admin: 05/20/19 05:58 Dose: 5 mg Documented by: Ketorolac Tromethamine (Toradol) 10 mg PO Q6H PRN PRN Reason: Pain (rating 4,5,6,7,8,9,10) Stop: 05/24/19 12:26 Metoprolol Tartrate (Lopressor) 25 mg PO BID [facility] Stop: 06/19/19 20:59 Nitroglycerin (Nitrostat) 0.4 mg SL UD PRN PRN Reason: Chest Pain Stop: 06/16/19 15:58 Prednisolone Acetate (Pred Forte 1%) 1 drops OP HS [facility] Stop: 06/16/19 20:59 Last Admin: 05/19/19 20:15 Dose: 1 drops Documented by: Valsartan (Diovan) 80 mg PO DAILY [facility] Stop: 06/17/19 08:59 Last Admin: 05/20/19 08:34 Dose: 80 mg Documented by: Warfarin Sodium (Coumadin) 5 mg PO DAILY@1600 [facility] Stop: 06/19/19 15:59
[2019-05-20] MEDS ORDERED: WARFARIN SOD 5 MG TAB PO SCH (16:00)
[2019-05-20] MEDS ORDERED: METOPROLOL TARTRATE 25 MG TAB PO SCH (21:00)
--- NOTE | 2019-05-25 08:33 | Hospitalist Progress Note ---
Date of Service delayed entry date of service 05/20/19 May 25, 2019 Assessment & Plan (1) Near syncope: Per previous hospitalist Dr. Arnoldo Nevarez's notes: Pt is 89 y/o F with PMH paroxysmal atrial fibrillation, atrial flutter on Coumadin, first-degree AV block, HTN, mitral regurgitation presented to ER with complaint of chest pain today and intermittent pre-syncope. She reports HR at home varying 40 and 140. Recently admitted to [facility] 05/06/2019- 05/10/2019 for near syncope and had Toprol changed to metoprolol tartrate Recent echo at [facility] interpretation: EF: 55-60%, grade 1 diastolic dysfunction, no significant valvular stenosis or regurgitation In ER received 1 nitro SL with relief of CP. EKG abnormal with possible intermittent complete heart block. Negative initial troponin. no significant electrolyte abnormality In ER vitals stable with HR 60's-80's, BP: 136/71, 120/88, R: 16-20, pulse ox 92-95% on RA and afebrile. Pt without dizziness, syncope, palpitations in ER. Reports chronic chest pressure however the CP had earlier has resolved CTA chest: No PE DDX: tachybrady syndrome, heart block Status post pacemaker placement 05/19/2011 Metoprolol resumed, tolerating well ff up with [facility] in 1 week as scheduled (2) Paroxysmal atrial fibrillation: On Coumadin INR: 1.5 resume coumadin, ff up with coumadin clinic Metoprolol resumed (3) HTN (hypertension): -Continue amlodipine, valsartan with holding parameters Disposition dc home ff up with PCP in 1 week ff up with [facility] in 1 week as scheduled by Cardio Clini Admission and Anticipated Discharge Date Admission Date: May 17, 2019 Subjective ff up for syncope resting in chair, comfortable not in distress mild discomfort over PM site denies chest pain, dyspnea, palpitations, dizziness, presyncope ambulating with no problems states she is ready and would like to be discharged to home today family at bedside, agreeable, will stay with patient for a few days denies other symptoms Review of Systems Review of Systems: All systems reviewed & are unremarkable except as noted in HPI & below Physical Exam Physical Exam: General- oriented x 3, not in distress, speaks in sentences with no effort or accessory muscle use Eyes- anicteric Neck- no JVD Lungs- clear breath sounds bilaterally, no rales/wheezes Heart- pacemaker site: dressing in place, no bleeding or discharge normal rate, regular rhythm; no murmurs Abdomen- normal bowel sounds, nondistended, soft, nontender Extremities- no pretibial edema, no calf tenderness Neuro- alert, oriented x 3; no gross focal neurologic deficits Skin- warm & dry Results & Data ([facility]) Laboratory Results noted and reviewed
--- NOTE | 2019-05-25 08:35 | Discharge Summary ---
Date of Service May 25, 2019 Admission HPI Per Admitting Provider Pt is 89 y/o F with PMH paroxysmal atrial fibrillation, atrial flutter on Coumadin, first-degree AV block, HTN, mitral regurgitation presented to ER with complaint of chest pain. Patient reports she has chronic anterior chest pressure. Reports today woke up and BP was 90/50. Reports later in morning HR elevated to 140 and had anterior chest pain. Denies any associated diaphoresis, shortness of breath. Patient reports for the past 6 months she has been having intermittent presyncopal episodes with standing or walking. She reports she has been using a blood pressure cuff at home and her pulse rate has been between 40 and 140. Patient states she has noticed that when she has presyncope described as feeling like she is in a pass out and has associated leg weakness her pulse is usually in the 40s. Patient denies any palpitations. She was recently admitted to [facility] 05/06/2019-05/10/2019 for near syncope. It is reported that she had first-degree AV block with long OH interval and episodes of hypotension, transient tachycardia. Had negative troponins. Her Toprol was changed to Toprol tartrate 12.5 mg twice daily. Follow-up at PCPs office and was changed to 3 times daily. Pt states that since hospital discharge she has continued to note varying heart rates and blood pressures at home. Patient reports sensation that she is going to "blackout" a couple of days ago was standing, denies any syncopal episode this past week. Reports having intermittent PORRAS's, denies PORRAS currently. Denies fever/chills, diaphoresis, N/V/D/C, vision changes, neck pain, orthopnea, cough, sore throat, choking, otalgia, rhinorrhea, abdominal pain, paresthesias, extremity edema, rashes, urinary symptoms. Admission Exam Per Admitting Provider General: no acute distress, WDWN Head: normocephalic, atraumatic Eyes: left eye PERRL, EOM's intact, conjunctiva non-injected, Right eye: cloudy, anicteric ENT: normal inspection external ears, nose, mucous membranes moist Neck: supple, trachea midline Lungs: clear, no respiratory distress, no wheezing/rhonchi/rales CV: RRR, +systolic murmur, no pretibial edema Abd: normal BS, soft, non-tender Ext: no cyanosis, no calf tenderness Neuro: A&O x 3, no focal deficits noted, normal affect Skin: warm, dry Principal Diagnosis PRESYNCOPE SECONDARY TO THIRD DEGREE HEART BLOCK, TACHY-JOSUE SYNDROME Discharge Exam General- oriented x 3, not in distress, speaks in sentences with no effort or accessory muscle use Eyes- anicteric Neck- no JVD Lungs- clear breath sounds bilaterally, no rales/wheezes Heart- pacemaker site: dressing in place, no bleeding or discharge normal rate, regular rhythm; no murmurs Abdomen- normal bowel sounds, nondistended, soft, nontender Extremities- no pretibial edema, no calf tenderness Neuro- alert, oriented x 3; no gross focal neurologic deficits Skin- warm & dry Discharge Data Allergies Allergy/AdvReac Type Severity Reaction Status Date / Time codeine Allergy Intermediate GI SYMPTOMS Unverified 05/17/19 12:26 Iodinated Contrast Media Allergy Intermediate GI SYMPTOMS Unverified 05/17/19 12:26 acetaminophen Allergy Mild AGITATION Unverified 05/17/19 12:26 polyethylene glycol 3350 Allergy Hives Unverified 05/17/19 12:26 [From Miralax] hydrocodone [From Vicodin] AdvReac Intermediate Shakiness Unverified 05/17/19 12:26 Consultations 05/17/19 13:52 ED Decision to Admit Stat 05/17/19 15:59 Consult Cardiology Routine Consult Case Management - Discharge Planning Routine 05/18/19 10:14 Consult Cardiac Electrophysiology Routine Procedures Performed Operation Date: 05/19/19 10:00 Actual Procedures p Pacer with A/V Leads (Dual) - Zbigniew Bhagat MD Ordered Studies 05/17/19 12:02 CT angio chest PE protocol Stat CLINICAL HISTORY: Chest and back pain. Possible pulmonary embolism. COMPARISON STUDY: April 02, 2018 TECHNIQUE: Following the IV administration of 119 mL of Optiray-320, CT angiogram of the thorax was performed from the thoracic inlet to the lung bases utilizing the pulmonary embolus protocol. Images are reviewed in the axial, sagittal, and coronal planes. IV contrast was administered without complication. MIP imaging was performed. A dose lowering technique was utilized adhering to the principles of ALARA. CT DOSE: 504.51 mGycm FINDINGS: There is a multinodular thyroid gland. No pathologically enlarged axillary mediastinal or hilar lymph nodes were visualized. There was no evidence of thoracic aortic dilatation. There were no pulmonary artery filling defects to indicate acute pulmonary embolism. No pleural effusions are visualized. There is respiratory motion artifact. There is mosaic attenuation the lungs suggesting underlying air trapping. There is a stable 6 mm right apical pulmonary nodule IMPRESSION: 1. No evidence of acute pulmonary embolism 2. Stable mosaic attenuation the lungs consistent with air trapping 3. Stable solid 6 mm right apical pulmonary nodule ACT 112: Negative or not required by law. 05/19/19 06:30 CL Cath Imgs for PACS use only Routine Hospital Course (1) Near syncope: Per previous hospitalist Dr. Arnoldo Nevarez's notes: Pt is 89 y/o F with PMH paroxysmal atrial fibrillation, atrial flutter on Coumadin, first-degree AV block, HTN, mitral regurgitation presented to ER with complaint of chest pain today and intermittent pre-syncope. She reports HR at home varying 40 and 140. Recently admitted to [facility] 05/06/2019- 05/10/2019 for near syncope and had Toprol changed to metoprolol tartrate Recent echo at [facility] interpretation: EF: 55-60%, grade 1 diastolic dysfunction, no significant valvular stenosis or regurgitation In ER received 1 nitro SL with relief of CP. EKG abnormal with possible intermittent complete heart block. Negative initial troponin. no significant electrolyte abnormality In ER vitals stable with HR 60's-80's, BP: 136/71, 120/88, R: 16-20, pulse ox 92-95% on RA and afebrile. Pt without dizziness, syncope, palpitations in ER. 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 There is a stable 6 mm right apical pulmonary nodule -- outpatient management and follow up Disposition dc home ff up with PCP in 1 week ff up with [facility] in 1 week as scheduled by Cardio Clinic Total Time Total Time Spent Total Time Spent (In Minutes): > 30 minutes Discharge Plan Discharge Items Patient Disposition: Home - Home Health Services Reason For Visit: CHEST PAIN Discharge Diagnosis: Near syncope, status post pacemaker placement Activity: As commented below Activity Comment: Resume activity gradually as tolerated, no heavy exertion, please follow further instructions below Lifting Comment: Follow instructions below Bathing Comment: No bathing Exercise/Sports: Wait until after follow-up appointment Driving/Machine Use: No driving until reevaluated and allowed by 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 JAMISON'S OFFICE WILL BE CALL WITH FOLLOW-UP APPT.) Benito Diaz MD [Primary Care Provider] - 05/25/19 11:05 am (FOLLOW- UP APPT WITH DR. BENITO ISRAEL PX NOTIFIED AT DISCHARGE) Diet: Heart Healthy Addtl Attending Provider Instructions: Follow-up with cardiology clinic next week as scheduled. The office will be calling you for the appointment. Follow-up with primary care physician in 1 week. Return to the ER or call 911 immediately if with recurrence of symptoms, palpitations, dizziness, shortness of breath, weakness. ACTIVITY RECOMMENDATIONS: * Do not raise affected arm over head for 2 weeks. SPECIAL CARE INSTRUCTIONS: * If bleeding occurs, apply direct pressure to area for 5 minutes. * Call your doctor if you have severe pain, fever, drainage or bleeding at site. * Keep dressing on and dry for 48 hours then remove. * Keep any scheduled doctor's appointment. * Implant Card - hand held device with website information given. SKIN IRRITATION: * You may experience some redness and/or swelling in the area where radiation was administered. If any skin irritation occurs, please contact your family physician. FOLLOW UP VISIT: Keep any scheduled doctor appointments. Pending Studies at Discharge: Yes Studies:: Pacemaker check by cardiology clinic next week; The office will be calling you for the appointment. Follow up with Coumadin Clinic on Thursday May 23, 2019 for blood work-INR Stand-Alone Forms: My [facility], Smoking Cessation Medications and DC Order Prescriptions: New metoprolol tartrate 25 mg Tablet 25 mg PO BID 30 Days Qty: 60 RF: 2 Continued valsartan 80 mg tablet 80 mg PO DAILY RF: 0 amlodipine 5 mg tablet 5 mg PO DAILY RF: 0 warfarin 5 mg tablet 5 mg PO DIRECTED RF: 0 isosorbide dinitrate 5 mg tablet 5 mg PO BID RF: 0 prednisolone acetate 1 % drops,suspension 1 drp OPL HS RF: 0 cholecalciferol (vitamin D3) [Vitamin D3] 1,000 unit (25 mcg) Tablet 2,000 unit PO QAM RF: 0 Combivent Respimat 20-100 mcg/actuation mist 1 puff inhalation QID RF: 0 albuterol sulfate [Ventolin HFA] 90 mcg/actuation Hfa Aerosol Inhaler 2 puff INHALATION Q6H PRN (Reason: Shortness Of Breath) RF: 0 Saccharomyces boulardii 250 mg Capsule 250 mg PO BID RF: 0 Discontinued metoprolol tartrate 25 mg tablet 12.5 mg PO TID RF: 0 Discharge Orders: Discharge Order (Routine); Ordered 05/20/19 Ordered By: Edu Walton Admission Data Admit Date/Time: 05/17/19 14:32 Attending Provider: Edu Walton Admit Provider: Morenita Jacinto Primary Care Provider: Benito Diaz Other Providers: Morenita Jacinto ; Live Jamison ; Zbigniew Bhagat Other Interventions: Discharge Summary Assessment (RN) Last Done: 05/20/19 12:55 DC Date/Time DO NOT enter until pt leaves facility: 05/20/19 13:33
== END 2019-05-20 13:33 | disposition home health service (06) | DRG 243 ==
LOC: ED 11:11 → 2S 14:32 → SUATTDRO 14:32 → 2S 15:13